=== PATIENT | male | born 1980 | race Two or more races ===

== ENCOUNTER 2024-10-06 12:52 | Emergency (ER) | payer OTHER, SELFPAY ==
[2024-10-06 12:54] VITALS: BP 178/113; PULSE 94; RESP 21; TEMP 36.4; O2SAT 96
[2024-10-06 12:55] VITALS: PULSE 84
--- NOTE | 2024-10-06 12:55 | EKG_ITS ---
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
--- NOTE | 2024-10-06 12:55 | XR_ITS ---
Examination: AP chest single view TECHNIQUE: AP portable upright chest single view Exam date and time: October 06, 2024 1335 hours INDICATIONS: Chest pain today FINDINGS: Normal heart size Reduced inspiratory effort No pneumonia or pulmonary edema Intact osseous structures IMPRESSION: No pneumonia or pulmonary
[2024-10-06 12:56] VITALS: BMI 32.8
--- NOTE | 2024-10-06 13:07 | EDNOTE_ITS ---
ED Chest Pain RME/HPI General Chief Complaint: Chest Pain Stated Complaint: CHEST PAIN Time Seen by Provider: 10/06/24 12:55 Arrival date/time: 10/06/24 12:52 Limitations: no limitations RME / HPI RME / HPI narrative: 44 year old male with history of hypertension presents to the ED BIBA accompanied by [facility] for evaluation of chest pain today. Pain is pleuritic and reproducible, rating as moderate. Accompanied by neck pain. Per medics report, patient was given Aspirin, SL Nitro, and had o2 applied en route. Patient denies fevers, chills, sweats, abdominal pain, n/v/d, or urinary symptoms. No other complaints reported. Related Data Previous Rx's ?Medication ?Instructions ?Recorded amlodipine 10 mg tablet 10 mg PO QDAY 30 days #30 tabs 03/17/24 atorvastatin 40 mg tablet 40 mg PO HS 30 days #30 tabs 03/17/24 lisinopril 20 mg tablet 20 mg PO QDAY 30 days #30 tabs 03/17/24 nicotine 21 mg/24 hr daily 14 mg topical QDAY 30 days #30 ea 03/17/24 transdermal patch Allergies Allergy/AdvReac Type Severity Reaction Status Date / Time No Known Allergies Allergy Verified 05/31/23 03:15 Review of Systems Review of Systems Systems Reviewed: All systems reviewed, normal except as documented Past Medical History Past Medical History CARDIAC: Positive Cardiac Disorders and Hypertension MUSCULOSKELETAL: Positive Fractures (right leg) PSYCHO/SOCIAL: Positive Recreational Drug Use, Depression and Anxiety Family History FAMILY HISTORY: Positive Family Cardiac Disorders Social History SMOKING STATUS: Current every day smoker ED Exam General Limitations: Present no limitations General appearance: Present alert and other (Mild distress) Head Head exam: Present atraumatic, normocephalic and normal inspection Eye Eye exam: Present normal appearance, PERRL and EOMI ENT ENT exam: Present normal exam, normal oropharynx and mucous membranes moist Neck Neck exam: Present normal inspection, full ROM and trachea midline Chest Chest inspection: Present symmetric chest wall rise and other (Reproducible tenderness ) Respiratory Respiratory exam: Present normal lung sounds bilaterally Cardiovascular Cardiovascular exam: Present regular rate, normal rhythm and normal heart sounds Abdominal Exam Abdominal exam: Present soft and normal bowel sounds Extremities Exam Extremities exam: Present normal inspection and full ROM Back Exam Back exam: Present normal inspection and full ROM Neurological Exam Neurological exam: Present alert, oriented X3 and CN II-XII intact Psychiatric Psychiatric exam: Present normal affect and normal mood Skin Skin exam: Present warm, dry, intact and normal color Course Course Course Narrative: chest xray ordered to help determine etiology of chest pain. Quality Measures none Orders Category Date Time Status Paper Steamer STAT Care 10/06/24 12:55 Active Continuous Pulse Oximetry ONCE Care 10/06/24 12:55 Active EKG (ED ONLY) *Do not use* NOW Care 10/06/24 12:55 Completed EKG (ED Only) Stat Exams 10/06/24 12:55 Draft XR chest 1V portable Stat Exams 10/06/24 12:55 Completed B-Type Natriuretic Peptide Stat Lab 10/06/24 13:15 Completed CBC Stat Lab 10/06/24 13:15 Completed Comprehensive Metabolic Panel Stat Lab 10/06/24 13:15 Completed Troponin I Stat Lab 10/06/24 13:15 Completed Ibuprofen Tab [Motrin Tab] Med 10/06/24 12:56 Discontinued 800 mg PO X1 ONE cloNIDine HCL [Catapres] Med 10/06/24 12:57 Discontinued 0.1 mg PO X1 ONE cloNIDine HCL [Catapres] Med 10/06/24 14:41 Discontinued 0.1 mg PO X1 ONE Reevaluation(s) Reevaluation #1: Patient remains clinically stable throughout the emergency department visit. We reviewed all the results, analysis, and treatment plans. Patient is amenable to discharge. Strict return precautions were outlined. Patient was discharged in stable condition. Time: 15:00 Vital Signs Vital signs: Vital Signs Temperature 97.5 F 10/06/24 12:54 Pulse Rate 94 10/06/24 12:54 Respiratory Rate 21 H 10/06/24 12:54 Blood Pressure 178/113 H 10/06/24 12:54 Pulse Oximetry (%) 96 10/06/24 12:54 Oxygen Delivery Method Room Air 10/06/24 12:54 Pulse ox is 96% on room air which is adequate. Chest Pain MDM Narrative MDM Narrative:: Miriam Felix am scribing for and in the presence of Dr. Persaud. Patient data External records reviewed:: [facility] previous records (I reviewed admission from 03/16/2024 through 03/17/2024) Clinical information provided by:: patient and law enforcement Social determinants that could affect healthcare access:: other (specify) (Currently incarcerated ) Patient has the following chronic illnesses:: HTN How is presenting disease/condition affected by chronic disease/condition?: exacerbated by Evaluation data The following diagnostics were reviewed and interpreted by me:: lab results, radiology exam(s) and EKG tracing(s) (Sinus rhythm, rate 80, nonspecific ST T- wave changes) Lab and/or radiology exams considered but not ordered:: None Interpretation Summary: Ordering Physician: Cristino Persaud MD Date of Service: 10/06/24 Procedure(s): XR chest 1V portable Accession Number(s): [id number] cc: Cristino Persaud MD; Bebeto Lazar MD; NO PRIMARY/FAMILY,PHYSICIAN~ Examination: AP chest single view TECHNIQUE: AP portable upright chest single view Exam date and time: October 06, 2024 1335 hours INDICATIONS: Chest pain today FINDINGS: Normal heart size Reduced inspiratory effort No pneumonia or pulmonary edema Intact osseous structures IMPRESSION: No pneumonia or pulmonary Dictated By: Bebeto Lazar MD Signed By: <Electronically signed by Bebeto Lazar MD in OV> 10/06/24 1348 Medications / Prescriptions Medications or Prescriptions considered but not ordered:: None Medication administrations:: Medication Administration History Discontinued Medications Clonidine (Clonidine Hcl 0.1 Mg Tablet) 0.1 mg PO X1 ONE Stop: 10/06/24 12:58 Last Admin: 10/06/24 14:46 Dose: Not Given Documented By: Non-Admin Reason: Other, see note Comments: patient spit out accidently Clonidine (Clonidine Hcl 0.1 Mg Tablet) 0.1 mg PO X1 ONE Stop: 10/06/24 14:42 Last Admin: 10/06/24 14:46 Dose: 0.1 mg Documented By: Ibuprofen (Ibuprofen Tab 400 Mg Tablet) 800 mg PO X1 ONE Stop: 10/06/24 12:57 Last Admin: 10/06/24 13:22 Dose: 800 mg Documented By: See above Consultations Consultation(s) initiated? (list below): No Diagnosis Chest Pain Differential Diagnosis: stable angina, atypical chest pain, st elevation myocardial infarction, costochondritis and chest pain Most likely diagnosis given after review of the tests above:: Hypertensive urgency Chest pain Admission Indicated Admission indicated?: not indicated Admission Request Was there a request for admission?: No Disposition Plan Disposition Plan: Discharge Discharge Attestation Discharge Attestation: The patient and all family members were given an opportunity to ask questions and understood the discharge instructions. Discharge instructions specifically effects, indications for sooner follow up or return to the emergency department, and the expected course of current diagnosis. Patient condition: Stable Discharge Plan Plan Patient Disposition: Intermediate/Court/Law Patient condition on transfer: Stable Prescriptions/Referrals Prescriptions/Med Rec: No Action amlodipine 10 mg tablet 10 mg PO QDAY 30 Days Qty: 30 6RF atorvastatin 40 mg tablet 40 mg PO HS 30 Days Qty: 30 6RF lisinopril 20 mg Tablet 20 mg PO QDAY 30 Days Qty: 30 6RF nicotine 21 mg/24 hr patch 24 hour 14 mg topical QDAY 30 Days Qty: 30 6RF Referrals: No Primary/Family,Physician [Primary Care Provider] - In 1 week Problem List Clinical Impression: Hypertensive urgency, Chest pain Patient/Caregiver Discharge Instructions Print Language: Yoruba
[2024-10-06 13:14] VITALS: PULSE 88; BMI 31.1
[2024-10-06] MEDS: IBUPROFEN TAB 400 MG TABLET 800 MG PO (13:22)
[2024-10-06 13:33] LABS: Basophils # (Auto) 0.1 Thou/mm3 (0.0-0.2); Basophils % (Auto) 1 % (0-2.5); Eosinophils # (Auto) 0.2 Thou/mm3 (0.0-0.5); Eosinophils % (Auto) 2 % (0-10); Hematocrit 51.4 % (41.0-53.0); Hemoglobin 18.6 g/dL (13.5-16.0); Immature Granulocytes % (Auto) 0 % (0-0); Immature Granulocytes Auto 0.04 Thou/mm3 (0.00-0.00); Lymphocytes # (Auto) 1.6 Thou/mm3 (1.0-4.8); Lymphocytes % (Auto) 16 % (10-50); Mean Corpuscular HGB Conc 36.2 g/dl (31.0-37.0); Mean Corpuscular Hemoglobin 29.5 pg (25.0-35.0); Mean Corpuscular Volume 82 fL (80-100); Monocytes # (Auto) 0.6 Thou/mm3 (0.0-0.8); Monocytes % (Auto) 6 % (0-12); Neutrophils # (Auto) 7.4 Thou/mm3 (1.8-7.7); Neutrophils % (Auto) 75 % (37-80); Nucleated Red Blood Cell % 0 /100 WBC (0); Platelet Count 290 Thou/mm3 (140-440); RDW Standard Deviation 37.3 fL (35.1-43.9); White Blood Count 9.8 Thou/mm3 (3.8-10.6)
[2024-10-06 13:49] LABS: B-Type Natriuretic Peptide < 20 pg/mL (0-100)
[2024-10-06 14:01] VITALS: BP 194/124; PULSE 82; RESP 20; TEMP 36.6; O2SAT 95
[2024-10-06 14:30] LABS: Alanine Aminotransferase 11 U/L (10-49); Albumin, Serum 4.6 gm/dL (3.5-5.0); Albumin/Globulin Ratio 1.4 (1.2-2.2); Alkaline Phosphatase 105 U/L (46-116); Anion Gap 7 (7-16); Aspartate Amino Transferase 18 U/L (0-34); BUN/Creatinine Ratio 10 Ratio (12-20); Blood Urea Nitrogen 9 mg/dL (9-23); Calcium 10.6 mg/dL (8.3-10.6); Calcium (Corrected) 10.6 mg/dL (8.5-10.1); Carbon Dioxide 23.5 mMol/L (20.0-31.0); Chloride 105 mMol/L (98-107); Creatinine (Component) 0.9 mg/dL (0.6-1.3); Estimated Creatinine Clearance 109.9 mL/min (>60); Globulin 3.2 gm/dL (2.3-3.5); Glucose 152 mg/dL (74-106); Osmolality,Calculated 271 (275-295); Potassium 3.8 mMol/L (3.4-5.1); Sodium 135 mMol/L (136-145); Total Protein 7.8 gm/dL (5.7-8.2); Troponin I < 0.020 ng/mL (0.0-0.045); eGFR > 60 See Note
[2024-10-06 14:46] VITALS: BP 167/98; PULSE 82; PULSE 85
[2024-10-06] MEDS: cloNIDine HCL 0.1 MG TABLET PO (14:46)
[2024-10-06 15:27] VITALS: BP 149/105; PULSE 87; RESP 16; TEMP 36.8; O2SAT 100
== END 2024-10-06 15:40 ==
PROVIDERS: Emergency Provider Emergency Medicine
DX: I16.0 Hypertensive urgency (principal); I10 Essential (primary) hypertension; F17.200 Nicotine dependence, unspecified, uncomplicated
CPT/HCPCS: 36415; 71045; 80053; 83880; 84484; 85025; 93005; 99283; A9270

== ENCOUNTER 2025-01-12 18:37 | Emergency (ER) | payer MEDICAID, SELFPAY ==
[2025-01-12] VITALS (7 sets, daily range): BP systolic 155–226; BP diastolic 98–146; PULSE 64–72; RESP 17–18; TEMP 36.7; O2SAT 98–100; BMI 30.2
[2025-01-12] MEDS: Lisinopril 20 MG TABLET PO (19:40)
[2025-01-12] MEDS: amLODIPine BESYLATE 5 MG TABLET 10 MG PO (19:40)
--- NOTE | 2025-01-12 20:11 | PD.EDMEDCL ---
ED Medical Clearance RME/HPI General Chief complaint: Medical Clearance Stated complaint: MEDICAL CLEARENCE Time Seen by Provider: 01/12/25 18:50 Source: police Arrival date/time: 01/12/25 18:37 This is a 44-year-old male who presents to the emergency department as a medical senior care clearance company with [facility]. He was detained and needed clearance to be booked at the [facility] senior care. He was noted to be hypertensive. Patient has no symptoms. History of hypertension has not been taking his medication for the last 3 months. Denies chest pain, dyspnea no headache, no dizziness. Mode of arrival: ambulatory Related Information Previous Rx's ?Medication ?Instructions ?Recorded amlodipine 10 mg tablet 10 mg PO QDAY 30 days #30 tabs 03/17/24 atorvastatin 40 mg tablet 40 mg PO HS 30 days #30 tabs 03/17/24 lisinopril 20 mg tablet 20 mg PO QDAY 30 days #30 tabs 03/17/24 nicotine 21 mg/24 hr daily 14 mg topical QDAY 30 days #30 ea 03/17/24 transdermal patch Allergies Allergy/AdvReac Type Severity Reaction Status Date / Time No Known Allergies Allergy Verified 05/31/23 03:15 Review of Systems Review of Systems Systems Reviewed: All systems reviewed, normal except as documented Narrative Review of Systems: Gen: No fever, no chills, no weight loss EYES: No discharge, no visual changes, no pain HEENT: No ear pain, no congestion, no sore throat PULM: No shortness of breath, no cough, no congestion CV: No chest pain, no dyspnea on exertion, no palpitations GI: No nausea, no vomiting, no diarrhea, no pain, no constipation : No frequency, no urgency, no dysuria Musc/skel: No joint pain, no back pain Skin: No rash Psyc: No hallucinations, no depression Heme/Lymph: No easy bleeding or bruising tendencies Neuro: No weakness, no headache ED Exam Narrative Physical exam: General: Sittiing in Exam table in no acute distress, answering questions appropriately HENT: normocephalic, atraumatic, EOMI, PERRLA, moist mucous membranes Chest: chest wall is nontender Cardiac: regular rate and rhythm, normal S1 and S2, no murmurs, rubs, or gallops, capillary refill ?2 seconds Pulmonary: clear to auscultation bilaterally, no wheezing, crackles, or rhonchi Abdominal: active bowel sounds, soft, nontender, nondistended Neuro: A&OX3, CN II-XII intact, sensation grossly intact bilaterally in UE and LE. Skin: no rashes, no ecchymosis Ext: no lower extremity edema Course Quality Measures none Orders Category Date Time Status EKG (ED ONLY) *Do not use* NOW Care 01/12/25 21:20 Completed EKG (ED Only) Stat Exams 01/12/25 21:20 Draft DiphenhydrAMINE [Benadryl] Med 01/12/25 21:52 Discontinued 50 mg PO X1 ONE Lisinopril [Prinivil] Med 01/12/25 18:53 Discontinued 20 mg PO X1 ONE amLODIPine BESYLATE [Norvasc] Med 01/12/25 18:53 Discontinued 10 mg PO X1 ONE cloNIDine HCL [Catapres] Med 01/12/25 20:47 Discontinued 0.1 mg PO X1 ONE cloNIDine HCL [Catapres] Med 01/12/25 21:48 Discontinued 0.2 mg PO X1 ONE Vital Signs Vital signs: Vital Signs Temperature 98.1 F 01/12/25 19:37 Pulse Rate 72 01/12/25 19:37 Respiratory Rate 18 01/12/25 19:37 Blood Pressure 226/146 H 01/12/25 19:37 Pulse Oximetry (%) 100 01/12/25 19:37 Oxygen Delivery Method Room Air 01/12/25 19:37 Medical Clearance MDM Narrative MDM Narrative:: 44-year-old male history of uncontrolled hypertension nonmedical compliance here for medical senior care clearance. Patient was given his routine medication which she has not taken for over weeks. He was also given a clonidine. Bringing down his blood pressure to 150 over 90s. An EKG was done sinus rhythm no ST elevation no STEMI Patient will be released back to the senior care system medically General Clearance. Patient data External records reviewed:: [facility] previous records Clinical information provided by:: none Social determinants that could affect healthcare access:: none Patient has the following chronic illnesses:: Hypertension How is presenting disease/condition affected by chronic disease/condition?: exacerbated by Evaluation data The following diagnostics were reviewed and interpreted by me:: EKG tracing(s) Lab and/or radiology exams considered but not ordered:: No Interpretation Summary: EKG medically necessary in the evaluation of noncompliant hypertension and interpreted by me and ED physician at the time of patient evaluation. Normal sinus rhythm with a rate of 50. [place] and QT intervals within normal limits. No ST/T changes. No STEMI. Interpretation: Normal EKG Medications / Prescriptions Medications or Prescriptions considered but not ordered:: No Medication administrations:: Medication Administration History Discontinued Medications Amlodipine Besylate (Amlodipine Besylate 5 Mg Tablet) 10 mg PO X1 ONE Stop: 01/12/25 18:54 Last Admin: 01/12/25 19:40 Dose: 10 mg Documented By: TC Clonidine (Clonidine Hcl 0.1 Mg Tablet) 0.1 mg PO X1 ONE Stop: 01/12/25 20:48 Last Admin: 01/12/25 20:49 Dose: 0.1 mg Documented By: TREY Clonidine (Clonidine Hcl 0.1 Mg Tablet) 0.2 mg PO X1 ONE Stop: 01/12/25 21:49 Last Admin: 01/12/25 22:15 Dose: Not Given Documented By: ELKE Non-Admin Reason: Discontinued Diphenhydramine HCl (Diphenhydramine 25 Mg Capsule) 50 mg PO X1 ONE Stop: 01/12/25 21:53 Last Admin: 01/12/25 22:16 Dose: Not Given Documented By: AC Non-Admin Reason: Discontinued Lisinopril (Lisinopril 20 Mg Tablet) 20 mg PO X1 ONE Stop: 01/12/25 18:54 Last Admin: 01/12/25 19:40 Dose: 20 mg Documented By: TC All medications administered and effective Consultations Consultation(s) initiated? (list below): No Diagnosis Medical Clearance Differential Diagnosis: other (Hypertension, hypertensive urgency, medical senior care clearance. Drug abuse.) Most likely diagnosis given after review of the tests above:: Hypertension uncontrolled Admission Indicated Admission indicated?: not indicated Admission Request Was there a request for admission?: No Disposition Plan Disposition Plan: Discharge Discharge Attestation Discharge Attestation: The patient and all family members were given an opportunity to ask questions and understood the discharge instructions. Discharge instructions specifically effects, indications for sooner follow up or return to the emergency department, and the expected course of current diagnosis. Patient condition: Stable Discharge Plan Plan Patient Disposition: Long-Term/Court/Law Patient condition on transfer: Stable Prescriptions/Referrals Prescriptions/Med Rec: No Action amlodipine 10 mg tablet 10 mg PO QDAY 30 Days Qty: 30 6RF atorvastatin 40 mg tablet 40 mg PO HS 30 Days Qty: 30 6RF lisinopril 20 mg Tablet 20 mg PO QDAY 30 Days Qty: 30 6RF nicotine 21 mg/24 hr patch 24 hour 14 mg topical QDAY 30 Days Qty: 30 6RF Referrals: No Primary/Family,Physician [Primary Care Provider] - In 1 week Problem List Clinical Impression: Medical clearance for incarceration, History of uncontrolled hypertension, Non compliance w medication regimen Patient/Caregiver Discharge Instructions Education Materials: Hypertension Dc Additional Instructions: With your history of hypertension it is very important that you take your medication as directed. Amlodipine 10 mg/day Lisinopril 40 mg p.o. per day Follow-up with your primary doctor. If you use drugs please stop using drugs it can harm your heart. Return to the emergency department this any worsening symptoms change in condition. Print Language: Citizen Of [place] PA/LALY Supervising Physician PA/LALY Supervising Physician: Dr. Swartz
[2025-01-12] MEDS: cloNIDine HCL 0.1 MG TABLET PO (20:49)
--- NOTE | 2025-01-12 21:20 | EKG_ITS ---
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
== END 2025-01-12 22:17 ==
PROVIDERS: Emergency Provider Emergency Medicine
DX: Z02.89 Encounter for other administrative examinations (principal); I10 Essential (primary) hypertension; Z65.3 Problems related to other legal circumstances; T46.5X6A Underdosing of other antihypertensive drugs, initial encounter; Z91.148 Patient's other noncompliance with medication regimen for other reason; Z79.899 Other long term (current) drug therapy
CPT/HCPCS: 93005; 99283; A9270

== ENCOUNTER 2025-02-19 17:22 | Inpatient (IN) | payer MEDICAID, SELFPAY ==
[2025-02-19] VITALS (7 sets, daily range): BP systolic 156–175; BP diastolic 97–112; PULSE 59–75; RESP 17–96; TEMP 36.8–37.2; O2SAT 96; BMI 30.5
--- NOTE | 2025-02-19 17:28 | XR_ITS ---
Examination: CTA carotids with intravenous contrast CTA brain, head with intravenous contrast. 2-D sagittal, coronal reconstructions. 3-D reconstructions. Exam date and time: February 19, 2025 at 05 hours Indications: Stroke alert, onset focal neurologic deficit left-sided body weakness today CTDI: vol (mGy) 25 DLP: (mGycm) 463 Technique: Multiple CTA axial brain, head carotid images post intravenous contrast injection 75 cc, [id number]. 2-D sagittal, coronal reconstructions. 3-D reconstructions, 3-D post processing including vascular maximum intensity projection images. Low dose protocols were performed. One or more of the following dose reduction techniques were used; automated exposure control, adjustment of the mA and/or KV according to patient size, use of iterative reconstruction technique. Findings: No significant common carotid carotid bifurcation or internal carotid artery stenoses Codominant vertebral arteries with no critical stenoses No cerebral large vessel arterial occlusions thrombus dissection or cerebral aneurysm Impression: No significant neck arterial stenoses No cerebral large vessel arterial occlusions or thrombus Consider repeating the brain MRI MRA without contrast, stroke protocol, follow-up
--- NOTE | 2025-02-19 17:28 | XR_ITS ---
Examination: CT brain head without contrast. 2-D sagittal coronal reconstructions Date and time of exam:February 1804 hrs. Indications: Stroke alert onset headaches with left-sided body weakness today CTDI: vol (mGy):50.5 DLP: (mGycm):1157 Technique: Multiple CT axial sections of the brain have been obtained, 5 mm slice thickness. Contrast has not been administered. 2-D sagittal, coronal reconstructions have been obtained Low dose protocols were performed. One or more of the following dose reduction techniques were used; automated exposure control, adjustment of the mA and/or KV according to patient size, use of iterative reconstruction technique. Findings: No significant ventricular enlargement. Intra-axial or extra-axial hemorrhage density is not seen. No mass effect or midline shift Basal cisterns are not remarkable. Fourth ventricle is midline. Cranial vault intact. Impression: Negative for acute hemorrhage, mass effect or midline shift As clinically warranted, brain MRI follow-up would best assess for demyelinating disease, acute ischemic change
--- NOTE | 2025-02-19 17:28 | EKG_ITS ---
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
--- NOTE | 2025-02-19 17:28 | EDRME_ITS ---
Rapid Medical Screening Exam [facility] Arrival date/time: 02/19/25 17:22 Chief Complaint: Altered Mental Status Vital signs: Vital Signs Temperature 99.0 F 02/19/25 17:25 Pulse Rate 68 02/19/25 17: Respiratory Rate 20 02/19/25 17:25 Blood Pressure 171/104 H 02/19/25 17:25 Pulse Oximetry (%) 96 02/19/25 17:25 Oxygen Delivery Method Room Air 02/19/25 17:25 RME Narrative: 44 year old male with past medical history significant for hypertension presents to the Emergency Department brought in from nursing home with complaint of left sided droop and left sided facial numbness since this morning; patient did not give us an onset of symptoms but it was when he woke up to brush his teeth, he states last night he was normal. Patient states that he started with a headache for 3 days. 1727: Stroke alert initiated. Orders made at this time are congruent stroke protocol.
[2025-02-19 17:47] LABS: Basophils # (Auto) 0.1 Thou/mm3 (0.0-0.2); Basophils % (Auto) 1 % (0-2.5); Eosinophils # (Auto) 0.3 Thou/mm3 (0.0-0.5); Eosinophils % (Auto) 4 % (0-10); Hematocrit 49.1 % (41.0-53.0); Hemoglobin 17.5 g/dL (13.5-16.0); Immature Granulocytes % (Auto) 0 % (0-0); Immature Granulocytes Auto 0.01 Thou/mm3 (0.00-0.00); Lymphocytes % (Auto) 29 % (10-50); Mean Corpuscular HGB Conc 35.6 g/dl (31.0-37.0); Mean Corpuscular Volume 81 fL (80-100); Monocytes # (Auto) 0.6 Thou/mm3 (0.0-0.8); Monocytes % (Auto) 8 % (0-12); Neutrophils # (Auto) 3.9 Thou/mm3 (1.8-7.7); Neutrophils % (Auto) 58 % (37-80); Nucleated Red Blood Cell % 0 /100 WBC (0); Platelet Count 216 Thou/mm3 (140-440); RDW Standard Deviation 35.7 fL (35.1-43.9); Red Blood Count 6.04 Miln/mm3 (4.50-5.90); White Blood Count 6.8 Thou/mm3 (3.8-10.6)
[2025-02-19 18:06] LABS: Prothrombin Time 10.9 Seconds (9.0-12.2)
[2025-02-19 18:13] LABS: Alanine Aminotransferase 28 U/L (10-49); Albumin, Serum 4.4 gm/dL (3.5-5.0); Albumin/Globulin Ratio 1.4 (1.2-2.2); Alkaline Phosphatase 87 U/L (46-116); Anion Gap 9 (7-16); Aspartate Amino Transferase 29 U/L (0-34); BUN/Creatinine Ratio 11 Ratio (12-20); Bilirubin,Total 0.7 mg/dL (0.3-1.2); Blood Urea Nitrogen 9 mg/dL (9-23); Carbon Dioxide 24.4 mMol/L (20.0-31.0); Chloride 104 mMol/L (98-107); Creatinine (Component) 0.8 mg/dL (0.6-1.3); Estimated Creatinine Clearance 122.5 mL/min (>60); Globulin 3.1 gm/dL (2.3-3.5); Glucose 97 mg/dL (74-106); Magnesium 2.2 mg/dL (1.6-2.6); Osmolality,Calculated 272 (275-295); Potassium 4.4 mMol/L (3.4-5.1); Sodium 137 mMol/L (136-145); Total Protein 7.5 gm/dL (5.7-8.2); Troponin I < 0.002 ng/mL (0.0-0.045); eGFR > 60 See Note
--- NOTE | 2025-02-19 18:19 | PD.EDNEURO ---
Neuro Symptoms Deficit-RME/HPI General Chief Complaint: Altered Mental Status Stated Complaint: MEDICAL CLEARANCE Time Seen by Provider: 02/19/25 18:18 Arrival date/time: 02/19/25 17:22 RME / HPI RME / HPI Narrative: 44 year old male with past medical history significant for hypertension presents to the Emergency Department brought in from detention with complaint of left sided droop and left sided facial numbness since this morning; patient did not give us an onset of symptoms but it was when he woke up to brush his teeth, he states last night he was normal. Patient states that he started with a headache for 3 days. 1727: Stroke alert initiated. Orders made at this time are congruent stroke protocol. This section includes all my notes and documentations, including HPI, PE, and ED course. Juan Miguel Alcantar MD HPI: 44-year-old male here with several days of severe headache and left-sided numbness and weakness since this morning. No speech or visual impairment. No chest pain or shortness of breath. No other complaints. ROS: All negative except as documented in HPI. Physical Exam: General: Alert and oriented. No acute distress. Eyes: Conjunctivae and lids clear. EOMI. PERRL. ENT: No nasal congestion. Neck: Supple. No carotid bruit. No JVD. Heart: RRR. Lungs: No respiratory distress. Good air movement. No rhonchi, wheezing, rales. Skin: Warm and dry. Neuro: Alert and oriented X 3. Cranial Nerves II-XII grossly intact. No peripheral motor deficits. I reviewed all diagnostic test results. My interpretation of the EKG is sinus rhythm with no acute ST?T changes. My review of the head CT report is no acute findings. My review of the head/neck CT report is no acute findings. Blood tests and urine tests unremarkable. At this point, diagnoses include strokelike symptoms. Treatment here included ASA. Remained stable. I discussed the case with telehealth neurologist and our hospitalist. About the presentation and exam and diagnostics and treatments here. And need of further care in the hospital. Will accept the patient. Juan Miguel Alcantar MD Related Data Previous Rx's ?Medication ?Instructions ?Recorded amlodipine 10 mg tablet 10 mg PO QDAY 30 days #30 tabs 03/17/24 atorvastatin 40 mg tablet 40 mg PO HS 30 days #30 tabs 03/17/24 lisinopril 20 mg tablet 20 mg PO QDAY 30 days #30 tabs 03/17/24 nicotine 21 mg/24 hr daily 14 mg topical QDAY 30 days #30 ea 03/17/24 transdermal patch Allergies Allergy/AdvReac Type Severity Reaction Status Date / Time No Known Allergies Allergy Verified 05/31/23 03:15 Course Quality Measures none Orders Category Date Time Status Bedside Blood Glucose NOW Care 02/19/25 17:28 Active COVID-19 Screening Questionnaire NOW Care 02/19/25 19:02 Active 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 NOW Care 02/19/25 17:28 Active Continuous Pulse Oximetry NOW Care 02/19/25 17:28 Completed Decision to Admit X1 Care 02/19/25 19:02 Active EKG (ED ONLY) *Do not use* NOW Care 02/19/25 17:28 Completed In and Out Catheter NEEDED Care 02/19/25 17:28 Active Insert IV NOW Care 02/19/25 17:28 Active NIH Stroke Scale now Care 02/19/25 17:28 Active NPO NOW Care 02/19/25 17:28 Active Nurse Swallow Screen x1 Care 02/19/25 17:28 Active Consult to Neurology / Tele-Neurology Routine Cons 02/19/25 17:[address] angio stroke protocol Stat Exams 02/19/25 17:[address] stroke protocol Stat Exams 02/19/25 17:28 Completed EKG (ED Only) Stat Exams 02/19/25 17:28 Draft CBC Stat Lab 02/19/25 17:33 Completed Comprehensive Metabolic Panel Stat Lab 02/19/25 17:33 Completed Drug Screen,Urine Stat Lab 02/19/25 18:45 Received Magnesium Stat Lab 02/19/25 17:33 Completed Partial Thromboplastin Time Stat Lab 02/19/25 17:33 Completed Prothrombin Time with INR Stat Lab 02/19/25 17:33 Completed Troponin I Stat Lab 02/19/25 17:33 Completed Urinalysis Stat Lab 02/19/25 18:45 Completed Urine Culture Stat Lab 02/19/25 18:45 Received Aspirin Med 02/19/25 18:25 Discontinued 325 mg PO X1 ONE Ondansetron Inj [Zofran Inj] Med 02/19/25 17:28 Active 4 mg IV Q4HR PRN Oxygen Delivery NOW RT 02/19/25 17:28 Active Vital Signs Vital signs: Vital Signs Temperature 99.0 F 02/19/25 17:25 Pulse Rate 68 02/19/25 17:25 Respiratory Rate 20 02/19/25 17:25 Blood Pressure 171/104 H 02/19/25 17:25 Pulse Oximetry (%) 96 02/19/25 17:25 Oxygen Delivery Method Room Air 02/19/25 17:25 Neuro Symptoms / Deficit Patient data External records reviewed:: [facility] previous records Clinical information provided by:: patient and EMS Social determinants that could affect healthcare access:: housing Patient has the following chronic illnesses:: Hypertension How is presenting disease/condition affected by chronic disease/condition?: exacerbated by Evaluation data The following diagnostics were reviewed and interpreted by me:: lab results, radiology exam(s) and EKG tracing(s) Lab and/or radiology exams considered but not ordered:: None Interpretation Summary: Normal diagnostics Medications / Prescriptions Medications or Prescriptions considered but not ordered:: None Medication administrations:: Medication Administration History Ondansetron HCl (Ondansetron Inj 2 Mg/Ml Inj 2 Ml) 4 mg IV Q4HR PRN PRN Reason: NAUSEA OR VOMITING Stop: 03/21/25 17:27 Discontinued Medications Aspirin (Aspirin 325 Mg Tablet) 325 mg PO X1 ONE Stop: 02/19/25 18:26 Last Admin: 02/19/25 18:35 Dose: 325 mg Documented By: APRIL Aspirin Consultations Consultation(s) initiated? (list below): Yes Consultation #1 (Physician, Specialty, Details): I discussed the case with telehealth neurologist. About the presentation and exam and diagnostics and treatments here. And need of further care in the hospital. Recommended admission for further care. Diagnosis Neuro Differential Diagnosis: convulsions, delirium, subarachnoid hemorrhage, peripheral neuropathy, cerebrovascular accident, multiple sclerosis and transient cerebral ischemia Most likely diagnosis given after review of the tests above:: Strokelike symptoms Admission Indicated Admission indicated?: indicated Explain why admission is indicated or not indicated:: Strokelike symptoms Admission Request Was there a request for admission?: Yes Admission Attestation Admission request attestation: Discussed case with Hospitalist service regarding admission. Discussed patients ED course, exam findings, labs, and radiology results. The Hospitalist [agrees] to accept the patient for admission. Disposition Plan Disposition Plan: Admit Discharge Plan Plan Patient Disposition: Admit Acute Care w/in Hospital Prescriptions/Referrals Prescriptions/Med Rec: No Action amlodipine 10 mg tablet 10 mg PO QDAY 30 Days Qty: 30 6RF atorvastatin 40 mg tablet 40 mg PO HS 30 Days Qty: 30 6RF lisinopril 20 mg Tablet 20 mg PO QDAY 30 Days Qty: 30 6RF nicotine 21 mg/24 hr patch 24 hour 14 mg topical QDAY 30 Days Qty: 30 6RF Referrals: No Primary/Family,Physician [Primary Care Provider] - In 1 week Problem List Clinical Impression: Stroke-like symptoms Patient/Caregiver Discharge Instructions Print Language: Kyrgyz Stand Alone Forms: Vicki Award Info., Patient Portal Info Letter
--- NOTE | 2025-02-19 18:27 | ESCONSULT_ITS ---
Tele Neuro Consultation Consultation Date 02/19/25 Most Recent Vital Signs Last Vital Signs Temp 99.0 F 02/19/25 17:25 Pulse 72 02/19/25 17:39 Resp 26 H 02/19/25 17:39 BP 175/112 H 02/19/25 17:39 Pulse Ox 96 02/19/25 17:39 O2 Del Method Room Air 02/19/25 17:25 FiO2 97 02/19/25 17:28 Laboratory-Coagulation Panel PT 10.9 Seconds (9.0-12.2) 02/19/25 17:33 INR 1.0 (0.9-1.3) 02/19/25 17:33 APTT 23.0 Seconds (22.0-36.0) 02/19/25 17:33 Consultation Narrative [facility] Patient Name:???Yao Ramirez Date of :???1980 Identification Number:??? Date of Service:???02/19/2025 17:33:23 Diagnosis:?I63.89 - Cerebrovascular accident (CVA) due to other mechanism ([facility]) Impression: ?44 year old man with HTN for whom neurology is consulted for evaluation of stroke. LKW 3 days ago with progressive onset of severe headache followed by wake up symptoms this morning of left facial weakness and left arm/leg weakness and numbness. NIHSS = 7 currently. NCCT Head without acute ischemia or hemorrhage. CTA Head and Neck without any LVO or flow limiting disease. Overall, given presence of left hemibody symptoms, his deficits best localize to DATABASE ADMIN process most likely pontine. His facial symptoms best localized to the geniculate ganglion of of left CN VII given tongue numbness and hyperacusis on left. 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 ? ?Recommendations: ?-q4 vitals/neurochecks ?-BP goal normotension, avoid drop in BP >15% in 24 hours ?-BG goal <180mg/dL while admitted ?-Aspirin 325mg x1 in ED ?-Continue Aspirin 81mg qdaily for now ?-Would hold on steroids until MRI results ?-Atorvastatin 80mg qHS ?-Check LDL and A1c (goal LDL <70, goal A1c <7) ?-Obtain MRI Brain w/o contrast, TTE w/ bubble, and place on telemetry monitoring ?-PT/OT/ST consults, NPO until passes bedside swallow study ?-Neurology follow up recommended ? Advanced Imaging: CTA Head and Neck Completed. LVO:No Patient in not a candidate for CHRIS Metrics: Last Known Well: Unknown Dispatch Time: 02/19/2025 17:33:23 Arrival Time: 02/19/2025 17:22:00 Initial Response Time: 02/19/2025 17:44:00Symptoms: Left Sided Weakness, Headache. Initial patient interaction: 02/19/2025 17:49:13 NIHSS Assessment Completed: 02/19/2025 17:55:14Patient is not a candidate for Thrombolytic. Thrombolytic Medical Decision: 02/19/2025 17:55:15Patient was not deemed candidate for Thrombolytic because of following reasons: LKW outside 4.5 hr window. . I personally Reviewed the CT Head and it Showed no hemorrhage or obvious acute ischemia Primary Provider Notified of Diagnostic Impression and Management Plan on: 02/19/2025 18:26:28 History of Present Illness:Patient is a 44 year old Male. Patient was brought by EMS for symptoms of Left Sided Weakness, Headache. Yao Ramirez is a 44 year old man with HTN who presents to the ED for evaluation of several days of severe and worsening headache and wake up symptoms of left facial weakness as well as left face and arm weakness/numbness. He endorses onset of symptoms about 3 days ago with very bad headache . He talked with nurse at [facility] who noted his blood pressure was normal at the time. His headache continued to worsen and this morning he noted he could not hold any water in his mouth. He also noted left sided tongue numbness and hyperacusis on left. He additionally notes left facial, arm, and leg numbness as well as some difficulty with motor strength in his left arm and leg. He denies history of similar symptoms. He endorses ongoing headache. Past Medical History: ?Hypertension Medications: No Anticoagulant use? No Antiplatelet use Reviewed EMR for current medications Allergies:? Reviewed Social History: Smoking: Yes Alcohol Use: Yes Family History: There is no family history of premature cerebrovascular disease pertinent to this consultation ROS : 14 Points Review of Systems was performed and was negative except mentioned in HPI. Past Surgical History: There Is No Surgical History Contributory To Today?s Visit Examination: BP(175/112),?Pulse(72),?Blood Glucose(102) 1A: Level of Consciousness - Alert; keenly responsive?+ 0 1B: Ask Month and Age - Both Questions Right?+ 0 1C: Blink Eyes & Squeeze Hands - Performs Both Tasks?+ 0 2: Test Horizontal Extraocular Movements - Normal?+ 0 3: Test Visual Javier - No Visual Loss?+ 0 4: Test Facial Palsy (Use Grimace if Obtunded) - Unilateral Complete paralysis (upper/lower face)?+ 3 5A: Test Left Arm Motor Drift - Drift, but doesn't hit bed?+ 1 5B: Test Right Arm Motor Drift - No Drift for 10 Seconds?+ 0 6A: Test Left Leg Motor Drift - Drift, but doesn't hit bed?+ 1 6B: Test Right Leg Motor Drift - No Drift for 5 Seconds?+ 0 7: Test Limb Ataxia (FNF/Heel-Sanchez) - No Ataxia?+ 0 8: Test Sensation - Mild-Moderate Loss: Less Sharp/More Dull?+ 1 9: Test Language/Aphasia - Normal; No aphasia?+ 0 10: Test Dysarthria - Mild-Moderate Dysarthria: Slurring but can be understood?+ 1 11: Test Extinction/Inattention - No abnormality?+ 0 NIHSS Score:?7 Pre-Morbid Modified Royston Scale:0 Points = No symptoms at all Spoke with :?ED Attending MD This consult was conducted in real time using interactive audio and video technology. Patient was informed of the technology being used for this visit and agreed to proceed. Patient located in hospital and provider located at home/office setting. Patient is being evaluated for possible acute neurologic impairment and high probability of imminent or life-threatening deterioration. I spent total of 35 minutes providing care to this patient, including time for face to face visit via telemedicine, review of medical records, imaging studies and discussion of findings with providers, the patient and/or family. Dr Duke Kovacs [facility] For Inpatient follow-up with [facility] physician please call [facility] at . As we are not an outpatient service for any post hospital discharge needs please contact the hospital for assistance. If you have any questions for the [facility] physicians or need to reconsult for clinical or diagnostic changes please contact us via [facility] at .
[2025-02-19] MEDS: Aspirin 325 MG TABLET PO (18:35)
[2025-02-19 18:55] LABS: Collection Type, Urine Clean Catch
[2025-02-19 18:58] LABS: Bilirubin,Urine Negative (Negative); Blood,Urine Negative (Negative); Clarity,Urine Clear (Clear/Hazy); Color,Urine Colorless (Lt Yel-Yel); Glucose, Urine Negative (Negative); Ketones,Urine Negative (Negative); Leukocyte Esterase,Urine Negative (Negative); Nitrite,Urine Negative (Negative); Protein,Urine Negative (Neg - Trace); RBC,Urine 2 /hpf (0-3); Specific Gravity,Urine 1.031 (1.001-1.035); Squamous Epithelial Cell,Urine < 1 /hpf (0-5); Urobilinogen,Urine Negative mg/dL (0.0-1.0); WBC,Urine < 1 /hpf (0-5)
[2025-02-19 20:19] LABS: Amphetamine/Methamp Scrn,U Negative (Negative); Barbiturate Screen,Urine Negative (Negative); Benzodiazepines Screen,Urine Negative (Negative); Benzoylecgonine Screen, Ur Negative (Negative); Fentanyl Screen,Urine Negative (Negative); Opiate Screen,Urine Negative (Negative); THC Screen,Urine Negative (Negative)
--- NOTE | 2025-02-19 20:19 | ESHP_ITS ---
Documentation for date of: 02/19/25 HPI History of Present Illness Chief complaint: left sided face weakness History of present illness: The patient is a 46-year-old male with a previous medical history of hypertension, cocaine use who [facility] to left-sided face weakness, left-sided face numbness and left sided extremity weakness that started today when he woke up. He also reports pressure-like headache in the left hemicranial area, especially in the mormonism. He also reported increased sound sensitivity on the left side, and reported that he noticed that liquid food is leaking out of his mouth on the left side due to weakness. He denies traumas, recent cocaine use (stopped when he went to correction). He denies having headaches before in his life. He denies other medical conditions, had a admission in January 2024 due to the similar left-sided body weakness, stroke was ruled out. ED course: Blood pressure 171/104, heart rate 68, afebrile, saturating adequately on room air. Workup revealed hemoglobin of 17.5, UA was negative for signs of UTI, U tox was negative. EKG showed sinus rhythm. Head CT was negative for acute hemorrhage, mass effect. CTA head and neck was negative for neck arterial stenosis, large vessel occlusions intracranially, codominant vertebral arteries with no critical stenosis. Teleneuro was consulted, NIHSS score 7. PAtient was not a candidate for thrombolytic therapy. Differential diagnosis is acute stroke vs Mize' palsy. Patient is going to be admitted for the acute stroke rule out. 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 Medications: lisinopril, does not remember the rest of meds Review of Systems Review of Systems Systems Reviewed: All systems reviewed, normal except as documented Past Medical History Past Medical History CARDIAC: Positive Cardiac Disorders and Hypertension MUSCULOSKELETAL: Positive Fractures (right leg) PSYCHO/SOCIAL: Positive Recreational Drug Use, Depression and Anxiety Family History FAMILY HISTORY: Positive Family Cardiac Disorders Social History SMOKING STATUS: Current every day smoker Exam Vital Signs Temp Pulse Resp BP Pulse Ox O2 Del Method FiO2 98.7 F 67 17 156/97 H 96 Room Air 97 02/19/25 18:45 02/19/25 18:45 02/19/25 18:45 02/19/25 18:45 02/19/25 18:45 02/19/25 18:45 02/19/25 17:28 Narrative Exam Gen: Well-developed and well-nourished. HEENT: NCAT, PERRLA, EOMI, MMM, anicteric conjunctivae. Impaired left eye closing. CVS: normal S1 and S2. RRR. No M/R/G. Resp: CTA B/L. No rhonchi, rales, crackles or wheezing. Abd: soft, non-tender, non-distended. BS+ in all 4 quadrants. MSK: Good ROM in BUE & BLE. No edema or rash. Burn scar on the right calf. Neuro: Midline restricted left sided numbness. Midline restricted left sided torso numbness. Left sided tongue weakness. Gag reflex intact. Left sided facial droop, mild eyebrow sagging. Strength 5/5 in RUE & RLE. Strength 4/5 in LUE & LLE. Babinski downgoing bilaterally. Alert and oriented x3. Psych: appropriate mood and affect. Results: Labs 02/19/25 17:33 02/19/25 17:33 Labs: Short CBC 02/19/25 Range/Units 17:33 WBC 6.8 (3.8-10.6) Thou/mm3 Hgb 17.5 H (13.5-16.0) g/dL Hct 49.1 (41.0-53.0) % Plt Count 216 (140-440) Thou/mm3 BMP 02/19/25 17:33 Sodium 137 Potassium 4.4 Chloride 104 Carbon Dioxide 24.4 BUN 9 Creatinine 0.8 Glucose 97 Calcium 10.0 Cardiac Enzymes 02/19/25 Range/Units 17:33 Troponin I < 0.002 (0.0-0.045) ng/mL Liver Function 02/19/25 Range/Units 17:33 Total Bilirubin 0.7 (0.3-1.2) mg/dL AST 29 (0-34) U/L ALT 28 (10-49) U/L Alkaline Phosphatase 87 (46-116) U/L Albumin 4.4 (3.5-5.0) gm/dL Urine 02/19/25 Range/Units 18:45 Urine Color Colorless A (Lt Yel-Yel) Urine Clarity Clear (Clear/Hazy) Urine pH 7.0 (5.0-7.0) Ur Specific Crockett 1.031 (1.001-1.035) Urine Protein Negative (Neg - Trace) Urine Glucose (UA) Negative (Negative) Quality Measures Quality Measures VTE prophylaxis Medications Home Medications and Allergies Allergies Allergy/AdvReac Type Severity Reaction Status Date / Time No Known Allergies Allergy Verified 05/31/23 03:15 Visit Medications Acetaminophen (Acetaminophen 325 Mg Tablet) 650 mg PO Q6H PRN PRN Reason: Fever >100.3 or pain 1-3 Stop: 03/21/25 19:55 Aspirin (Aspirin Ec 81 Mg Tabec) 81 mg PO QDAY NUBIA Stop: 03/22/25 08:59 Atorvastatin Calcium (Atorvastatin Calcium 20 Mg Tablet) 80 mg PO HS NUBIA Stop: 03/22/25 20:59 Hydralazine HCl (Hydralazine Inj 20 Mg/Ml Vial) 5 mg IV Q2HR NUBIA Stop: 03/21/25 21:59 Ondansetron HCl (Ondansetron Inj 2 Mg/Ml Inj 2 Ml) 4 mg IV Q6HR PRN PRN Reason: NAUSEA OR VOMITING Stop: 03/21/25 17:27 Oxycodone/Acetaminophen (Oxycodone/Apap 5/325 Tablet) 1 tab PO Q6H PRN PRN Reason: PAIN SCALE 4-6 Stop: 02/24/25 19:55 Sennosides (Senna Tablet) 1 tab PO QDAY PRN; Protocol PRN Reason: constipation Stop: 03/21/25 19:55 Discontinued Medications Aspirin (Aspirin 325 Mg Tablet) 325 mg PO X1 ONE Stop: 02/19/25 18:26 Last Admin: 02/19/25 18:35 Dose: 325 mg Aspirin (Aspirin Ec 81 Mg Tabec) 81 mg PO X1 ONE Stop: 02/19/25 20:09 Last Admin: 02/19/25 20:11 Dose: Not Given Atorvastatin Calcium (Atorvastatin Calcium 20 Mg Tablet) 80 mg PO HS NUBIA Stop: 03/21/25 20:59 Ondansetron HCl (Ondansetron Inj 2 Mg/Ml Inj 2 Ml) 4 mg IV Q4HR PRN PRN Reason: NAUSEA OR VOMITING Stop: 03/21/25 17:27 Assessment & Plan Plan The patient is a 46-year-old male with a previous medical history of hypertension, cocaine use who was brought to the ED from [facility] due to left-sided face weakness, left-sided face numbness and left sided extremity weakness that started today when he woke up. Patient is going to be admitted for the acute stroke rule out. #Acute stroke rule out Ddx: pontine stroke vs Pugh's palsy Patient has peripheral left sided face weakness, left sided body weakness and numbness. CT head and CTA head and neck negative for acute stroke, LVO. Plan: - telemetry -q4 neurochecks -BP goal normotension, avoid drop in BP >15% in 24 hours -Euglycemia and euthermia -Aspirin 325mg x1 in ED -Aspirin 81mg daily -Would hold on steroids for Pugh's palsy treatment until MRI results -Atorvastatin 80mg qHS -LDL and A1c (goal LDL <70, goal A1c <7) -MRI Brain w/o contrast, -TTE w/ bubble -PT, speech therapy consults - passed swallow screen, dysphagia 2 diet -in-house neurology consult #Headache Ct negative for fracture, intracranial bleeding. Plan: - pain control as needed #Hypertension Plan: - will resume home lisinoprol medication in the morning - hydralazine PRN SBP>220/120 Health maintenance: FEN: dysphagia diet DVT prophylaxis: SCDs GI prophylaxis: none Dispo: telemetry CODE STATUS: Full code Plan of care discussed with attending Dr. Sauceda, PGY-[address] Fraga. Cynthia Jeffries MD, PGY 1. Attending Provider Attestation/Addendum 44-year-old male patient from [facility] was brought in because of left facial asymmetry. The patient feels weird on the left side of the face which facial droop and some mild weakness of the left arm and leg. The patient noticed this early in this morning around 7:00. She has been complaining of headache for the past [address] scan of the brain showed no acute infarction no hemorrhage. He has no large vessel occlusion or thrombus. Patient was admitted for stroke/TIA. Further imaging recommended. Discussed with housestaff.
[2025-02-19] MEDS: oxyCODONE/APAP 5/325 TABLET 1 TAB PO (21:02)
[2025-02-19] MEDS: ACETAMINOPHEN 325 MG TABLET 650 MG PO (23:20)
[2025-02-20] VITALS (10 sets, daily range): BP systolic 125–155; BP diastolic 77–103; PULSE 55–89; RESP 13–94; TEMP 36.1–36.7; O2SAT 96–100
--- NOTE | 2025-02-20 | XR_ITS ---
Examinations: MRI Brain without intravenous contrast. MRA brain without intravenous contrast. MRA carotids without intravenous contrast 3-D vascular reconstructions Date and time of exam: February 20, 2025 0630 hrs. Comparison March 17, 2024 Indications: Stroke alert February 19, 2025 onset left-sided facial numbness left-sided body weakness Technique: Multiple axial and sagittal images of the brain have been obtained MRA brain carotid images without contrast obtained, including 3-D postprocessing, vascular maximum intensity projection images Findings: Sellaturcica is not enlarged. The optic chiasm and infundibular stalk are not remarkable. Prepontine and interpeduncular cisterns are not enlarged. No localized enlargement of the medulla or shahana. Fourth ventricle and cerebellar tonsils normal in position. Subacute hemorrhage is not seen. Fourth ventricle is midline. Mass in the cerebellopontine angle region is not evident. 7th and 8th nerve complexes exhibits symmetry. Globes are symmetrical with no retro-orbital mass. Increased white matter signal not seen Diffusion-weighted images demonstrate no focus of restricted diffusion Mass-effect upon the ventricular system is not identified. MRA carotid images no significant carotid stenoses. MRA brain images no cerebral large vessel arterial occlusions Impression: Negative for acute hemorrhage mass effect or midline shift No acute infarct No MR findings diagnostic for demyelinating disease No significant carotid stenoses, no cerebral large vessel arterial occlusions
[2025-02-20] MEDS: HYDROmorphone INJ 2 MG/ML VIAL 0.5 MG IVP ×2 (02:34→21:07)
[2025-02-20 05:20] LABS: Basophils # (Auto) 0.1 Thou/mm3 (0.0-0.2); Basophils % (Auto) 1 % (0-2.5); Eosinophils # (Auto) 0.3 Thou/mm3 (0.0-0.5); Eosinophils % (Auto) 5 % (0-10); Hematocrit 49.8 % (41.0-53.0); Immature Granulocytes % (Auto) 0 % (0-0); Immature Granulocytes Auto 0.01 Thou/mm3 (0.00-0.00); Lymphocytes # (Auto) 2.1 Thou/mm3 (1.0-4.8); Lymphocytes % (Auto) 33 % (10-50); Mean Corpuscular HGB Conc 36.1 g/dl (31.0-37.0); Mean Corpuscular Hemoglobin 29.1 pg (25.0-35.0); Mean Corpuscular Volume 81 fL (80-100); Monocytes # (Auto) 0.5 Thou/mm3 (0.0-0.8); Monocytes % (Auto) 8 % (0-12); Neutrophils # (Auto) 3.4 Thou/mm3 (1.8-7.7); Neutrophils % (Auto) 53 % (37-80); Nucleated Red Blood Cell % 0 /100 WBC (0); Platelet Count 222 Thou/mm3 (140-440); RDW Standard Deviation 34.7 fL (35.1-43.9); Red Blood Count 6.19 Miln/mm3 (4.50-5.90); White Blood Count 6.4 Thou/mm3 (3.8-10.6)
[2025-02-20 05:48] LABS: Glucose Estimated Average 111 mg/dL (80-131); Hemoglobin A1C 5.5 % Hgb (4.8-6.0)
[2025-02-20 05:57] LABS: Alanine Aminotransferase 27 U/L (10-49); Albumin, Serum 4.3 gm/dL (3.5-5.0); Albumin/Globulin Ratio 1.5 (1.2-2.2); Alkaline Phosphatase 88 U/L (46-116); Anion Gap 9 (7-16); Aspartate Amino Transferase 28 U/L (0-34); BUN/Creatinine Ratio 10 Ratio (12-20); Bilirubin,Total 0.9 mg/dL (0.3-1.2); Blood Urea Nitrogen 9 mg/dL (9-23); Calcium 9.7 mg/dL (8.3-10.6); Calcium (Corrected) 9.7 mg/dL (8.5-10.1); Carbon Dioxide 28.2 mMol/L (20.0-31.0); Cardiac Risk Estimate 4.2 RATIO (4.0-6.7); Chloride 102 mMol/L (98-107); Cholesterol 182 mg/dL (132-200); Creatinine (Component) 0.9 mg/dL (0.6-1.3); Estimated Creatinine Clearance 108.9 mL/min (>60); Globulin 2.9 gm/dL (2.3-3.5); Glucose 95 mg/dL (74-106); HDL Cholesterol 43 mg/dL (40-60); LDL Cholesterol,Calculated 98 mg/dL (0-130); Magnesium 2.1 mg/dL (1.6-2.6); Osmolality,Calculated 276 (275-295); Phosphorous 4.4 mg/dL (2.4-5.1); Potassium 4.3 mMol/L (3.4-5.1); Sodium 139 mMol/L (136-145); Thyroid Stimulating Hormone 5.67 uIU/mL (0.55-4.78); Total Protein 7.2 gm/dL (5.7-8.2); Triglycerides 205 mg/dL (30-150); eGFR > 60 See Note
[2025-02-20] MEDS: ASPIRIN EC 81 MG TABEC PO (08:50)
[2025-02-20] MEDS: Lisinopril 20 MG TABLET PO (08:50)
[2025-02-20] MEDS: oxyCODONE/APAP 5/325 TABLET 1 TAB PO ×2 (08:51→17:06)
--- NOTE | 2025-02-20 10:56 | ESPR_ITS ---
<Statement entered by Grabiel Somers MD - 02/21/25 08:03> Patient coming in with complaints of facial droopiness. MRI negative. 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 Will likely DC tomorrow. Case discussed with team. Grabiel Somesr MD PGY3 Documentation for date of: 02/20/25 Subjective Subjective Interval history: Pt is an overnight admit. Pt is seen and examined at bedside this morning. Pt states he started having have severe headache for 3 days and woke up yesterday with left side facial droop and left side weakness in upper and lower extremities. Pt also has blurry vision in the left side. Pt denies any sick contacts, denies chest pain, palpitation, abdominal pain or diarrhea. vitals are stable, significant labs include Hgb 18.0, triglycerides 205, TSH 5.67 Exam Vital Signs Temp Pulse Resp BP Pulse Ox O2 Del Method FiO2 97.1 F 87 20 138/103 H 100 Room Air 97 02/20/25 08:00 02/20/25 10:40 02/20/25 10:40 02/20/25 08:50 02/20/25 08:00 02/20/25 08:00 02/19/25 17:28 Narrative Exam GENERAL: A&Ox3 . Awake, Not in acute distress HEENT: Atraumatic, Normocephalic. mucous membranes moist. HEART: Normal Heart Sounds LUNGS: Clear to auscultation with no wheezing or crackles. ABDOMEN: soft, non-distended, non-tender, bowel sounds heard, no guarding or rebound tenderness SKIN: No Rash or ecchymoses EXTREMITIES: No edema, tenderness, able to move all 4 extremities, pedal pulses palpated NEURO:? ? MENTAL STATUS:?AAOx3 ? LANG/SPEECH: Fluent, intact naming, repetition & comprehension ? CRANIAL NERVES: ? II: Pupils equal and reactive, no RAPD,?normal visual field and fundus ? III, IV, : EOM intact, no gaze preference or deviation ? V: normal ? VII: left side facial droop ? VIII: normal hearing to speech ? MOTOR: 5/5 in right upper and lower extremities, 4/5 in left upper and lower extremities ? SENSORY: Normal to touch, temperature & pin prick in all extremities ? COORD: Normal finger to nose, no tremor, no dysmetria Objective Labs 02/21/25 04:00 02/21/25 04:00 Labs: Laboratory Results - last 24 hr 02/19/25 02/19/25 02/20/25 17:33 18:45 04:47 WBC 6.8 6.4 RBC 6.04 H 6.19 H Hgb 17.5 H 18.0 H* Hct 49.1 49.8 MCV 81 81 MCH 29.0 29.1 MCHC 35.6 36.1 RDW Std Deviation 35.7 34.7 L Plt Count 216 222 Neut % (Auto) 58 53 Lymph % (Auto) 29 33 [place] % (Auto) 8 8 Eos % (Auto) 4 5 Baso % (Auto) 1 1 Neut # (Auto) 3.9 3.4 Lymph # (Auto) 2.0 2.1 [place] # (Auto) 0.6 0.5 Eos # (Auto) 0.3 0.3 Baso # (Auto) 0.1 0.1 Immature Gran # (Auto) 0.01 H 0.01 H Absolute Nucleated RBC 0.00 0.00 Immature Gran % 0 0 Nucleated RBC % 0 0 PT 10.9 INR 1.0 APTT 23.0 Sodium 137 139 Potassium 4.4 4.3 Chloride 104 102 Carbon Dioxide 24.4 28.2 Anion Gap 9 9 BUN 9 9 Creatinine 0.8 0.9 Estim Creat Clear Calc 122.5 108.9 eGFR > 60 > 60 BUN/Creatinine Ratio 11 L 10 L Glucose [address] Glu mg/dL 111 Hemoglobin A1c 5.5 Calculated Osmolality 272 L 276 Calcium 10.0 9.7 Corrected Calcium 10.0 9.7 Phosphorus 4.4 Magnesium 2.2 2.1 Total Bilirubin 0.7 0.9 AST 29 28 ALT 28 27 Alkaline Phosphatase 87 88 Troponin I < 0.002 Total Protein 7.5 7.2 Albumin 4.4 4.3 Globulin 3.1 2.9 Albumin/Globulin Ratio 1.4 1.5 Triglycerides 205 H Cholesterol 182 LDL Cholesterol, Calc 98 HDL Cholesterol 43 Cholesterol/HDL Ratio 4.2 TSH 5.67 H Ur Collection Type Clean Catch Urine Color Colorless A Urine Clarity Clear Urine pH 7.0 Ur Specific [place] 1.031 Urine Protein Negative Urine Glucose (UA) Negative Urine Ketones Negative Urine Blood Negative Urine Nitrite Negative Urine Bilirubin Negative Urine Urobilinogen (Auto) Negative Ur Leukocyte Esterase Negative Urine RBC 2 Urine WBC < 1 Ur Squamous Epith Cells < 1 Urine Bacteria None Urine Opiates Screen Negative Urine Fentanyl Screen Negative Ur Barbiturates Screen Negative U Amphetamin/Meth Scrn Negative U Benzodiazepines Scrn Negative U Cocaine Metab Screen Negative U Marijuana (THC) Screen Negative Quality Measures Quality Measures VTE prophylaxis Assessment & Plan Assessment Current Active Medications: Generic Name Dose Route Start Last Admin Trade Name Freq PRN Reason Stop Dose Admin Acetaminophen 650 mg 02/19/25 19:56 02/19/25 23:20 Acetaminophen 325 Mg Tablet PO 03/21/25 19:55 650 mg Q6H PRN Administration Fever >100.3 or pain 1-3 Aspirin 81 mg 02/20/25 09:00 02/20/25 08:50 Aspirin Ec 81 Mg Tabec PO 03/22/25 08:59 81 mg QDAY NUBIA Administration Atorvastatin Calcium 80 mg 02/20/25 21:00 Atorvastatin Calcium 20 Mg Tablet PO 03/22/25 20:59 HS NUBIA Hydralazine HCl 5 mg 02/19/25 20:41 Hydralazine Inj 20 Mg/Ml Vial IV 03/21/25 21:59 Q2HR PRN SBP >220 or DBP >120 Lisinopril 20 mg 02/20/25 09:00 02/20/25 08:50 Lisinopril 20 Mg Tablet PO 03/22/25 08:59 20 mg QDAY NUBIA Administration Ondansetron HCl 4 mg 02/19/25 20:02 Ondansetron Inj 2 Mg/Ml Inj 2 Ml IV 03/21/25 17:27 Q6HR PRN NAUSEA OR VOMITING Oxycodone/Acetaminophen 1 tab 02/19/25 19:56 02/20/25 08:51 Oxycodone/Apap 5/325 Tablet PO 02/24/25 19:55 1 tab Q6H PRN Administration PAIN SCALE 4-6 Sennosides 1 tab 02/19/25 19:56 Senna Tablet PO 03/21/25 19:55 QDAY PRN constipation Protocol Plan Mr. Mcallister is a 46-year-old male with a previous medical history of hypertension, cocaine use who was brought to the ED from [facility] due to left-sided face weakness, left-sided face numbness and left sided extremity weakness that started today when he woke up. Patient is going to be admitted for the acute stroke rule out. #Sever [place] Palsy, left sided -Pt presented with facial droop of the left side and unable to close his left eye for 1 day -Pt is started on prednisone 80mg daily for 7 days -Pt is also started on acyclovir 400mg % times a day for 10 days -Artificial tears ordered for lubricating eye #Erythrocytosis -Hgb 18.0, all other labs are within normal limits -Ordered peripheral blood smear #Acute stroke- rule out Ddx: pontine stroke vs Pugh's palsy Patient has peripheral left sided face weakness, left sided body weakness and numbness. CT head and CTA head and neck negative for acute stroke, LVO. Head MRI with MRA and CTA of head and neck is negative for stroke Plan: -q4 neurochecks -BP goal normotension, avoid drop in BP >15% in 24 hours -Euglycemia and euthermia -Aspirin 325mg x1 in ED -Aspirin 81mg daily -Atorvastatin 80mg qHS -TTE w/ bubble- negative bubble study, normal LV and RV size and function. EF 60 to 65% -PT, speech therapy consults -passed swallow screen, dysphagia 2 diet -in-house neurology consult #Headache Ct negative for fracture, intracranial bleeding. Plan: - pain control as needed #Hypertension -resumed home lisinopril -hydralazine PRN SBP>220/120 #?Hepatitis C -Pt's serology for Hep C antibody is reactive on 03/17/24. Pt would need outpatient follow up with primary care for further viral load work up and possible referral to pediatrics hospitalist for treatment. Health maintenance: FEN: dysphagia diet DVT prophylaxis: SCDs GI prophylaxis: none Dispo: telemetry CODE STATUS: Full code Assessment and plan discussed with my senior resident Dr. Somers & attending physician Dr. Chapin Walker (PGY-1)- Internal medicine resident Attending Provider Attestation/Addendum I attest that I was physically present for the evaluation, physical examination, lab and imaging review of the patient with the residents. I discussed the case with the residents and agree with the findings and plans of care as documented above. Patient is a 46 years old male with past medical cocaine abuse who was brought from [facility] with complaint of left-sided facial and limb weakness. He was admitted overnight for Pugh's palsy versus acute CVA. CVA workup has been negative including MRI with MRA. At bedside, patient has significant left facial droop. Also complains of headache on the left side with blurry vision. We will obtain ESR and CRP. Started patient on prednisone 80 daily along with acyclovir 400 mg 5 times a day for Pugh's palsy. Started on artificial tears for eye protection. Patient passed bedside swallow, started on diet. We will obtain speech therapy and physical therapy. Echocardiography was negative for bubble study and findings are within normal limits. Patient has also been started on aspirin and statin. Awaiting neurology recommendations. Wendy Samson MD
--- NOTE | 2025-02-20 10:58 | PD.RESPRO ---
Documentation for date of: 02/20/25 Subjective Subjective Interval history: Patient seen and examined at bedside. He is a 44-year-old male with a past medical history of hypertension, cocaine and marijuana use who was brought into the ED on 02/19/2025 from [facility] with complaints of left-sided facial weakness, numbness and weakness in his left lower extremity started on awakening. Also endorsed pressure-like headache in the left mandaeism with hyperacusis. Reports that he has had migraines in the past in the same location, but this headache feels little worse than usual. In the ED, teleneuro was consulted, NIHSS was 7 and patient was admitted for evaluation of Pugh's palsy with CVA rule out. Head CT was done as well as CTA and is negative. MRI brain also negative. At bedside today, patient still complains of headache and examination still has left-sided facial paralysis. 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 Strength in left upper extremity about 4/5 as well as lower. Facial nerve examination-inadequate left eye closure, flattened nasolabial fold on the left, loss of wrinkling of the forehead on the left. Normal reflexes. HEENT: Moist mucosa. Pupils reactive to light bilaterally, difficulty occlusion in the left eye. CARDIO: No chest pain on palpation. Heart RRR, no obvious murmurs PULM: No noted coughing/dyspnea. Lungs CTA B/L GI: Abdomen soft, nondistended, no pain on palpation. BSx4 URO/DATA SME:: No further abnormalities noted. SKIN/MSK/EXT: No wounds/rashes/edema/amputations, no pain on palpation. Pedal pulses present B/L Objective Labs 02/20/25 04:47 02/20/25 04:47 Labs: Laboratory Results - last 24 hr 02/19/25 02/19/25 02/20/25 17:33 18:45 04:47 WBC 6.8 6.4 RBC 6.04 H 6.19 H Hgb 17.5 H 18.0 H* Hct 49.1 49.8 MCV 81 81 MCH 29.0 29.1 MCHC 35.6 36.1 RDW Std Deviation 35.7 34.7 L Plt Count 216 222 Neut % (Auto) 58 53 Lymph % (Auto) 29 33 [place] % (Auto) 8 8 Eos % (Auto) 4 5 Baso % (Auto) 1 1 Neut # (Auto) 3.9 3.4 Lymph # (Auto) 2.0 2.1 [place] # (Auto) 0.6 0.5 Eos # (Auto) 0.3 0.3 Baso # (Auto) 0.1 0.1 Immature Gran # (Auto) 0.01 H 0.01 H Absolute Nucleated RBC 0.00 0.00 Immature Gran % 0 0 Nucleated RBC % 0 0 PT 10.9 INR 1.0 APTT 23.0 Sodium 137 139 Potassium 4.4 4.3 Chloride 104 102 Carbon Dioxide 24.4 28.2 Anion Gap 9 9 BUN 9 9 Creatinine 0.8 0.9 Estim Creat Clear Calc 122.5 108.9 eGFR > 60 > 60 BUN/Creatinine Ratio 11 L 10 L Glucose [address] Glu mg/dL 111 Hemoglobin A1c 5.5 Calculated Osmolality 272 L 276 Calcium 10.0 9.7 Corrected Calcium 10.0 9.7 Phosphorus 4.4 Magnesium 2.2 2.1 Total Bilirubin 0.7 0.9 AST 29 28 ALT 28 27 Alkaline Phosphatase 87 88 Troponin I < 0.002 Total Protein 7.5 7.2 Albumin 4.4 4.3 Globulin 3.1 2.9 Albumin/Globulin Ratio 1.4 1.5 Triglycerides 205 H Cholesterol 182 LDL Cholesterol, Calc 98 HDL Cholesterol 43 Cholesterol/HDL Ratio 4.2 TSH 5.67 H Ur Collection Type Clean Catch Urine Color Colorless A Urine Clarity Clear Urine pH 7.0 Ur Specific [place] 1.031 Urine Protein Negative Urine Glucose (UA) Negative Urine Ketones Negative Urine Blood Negative Urine Nitrite Negative Urine Bilirubin Negative Urine Urobilinogen (Auto) Negative Ur Leukocyte Esterase Negative Urine RBC 2 Urine WBC < 1 Ur Squamous Epith Cells < 1 Urine Bacteria None Urine Opiates Screen Negative Urine Fentanyl Screen Negative Ur Barbiturates Screen Negative U Amphetamin/Meth Scrn Negative U Benzodiazepines Scrn Negative U Cocaine Metab Screen Negative U Marijuana (THC) Screen Negative Quality Measures Quality Measures VTE prophylaxis Assessment & Plan Assessment Current Active Medications: Generic Name Dose Route Start Last Admin Trade Name Freq PRN Reason Stop Dose Admin Acetaminophen 650 mg 02/19/25 19:56 02/19/25 23:20 Acetaminophen 325 Mg Tablet PO 03/21/25 19:55 650 mg Q6H PRN Administration Fever >100.3 or pain 1-3 Aspirin 81 mg 02/20/25 09:00 02/20/25 08:50 Aspirin Ec 81 Mg Tabec PO 03/22/25 08:59 81 mg QDAY NUBIA Administration Atorvastatin Calcium 80 mg 02/20/25 21:00 Atorvastatin Calcium 20 Mg Tablet PO 03/22/25 20:59 HS NUBIA Hydralazine HCl 5 mg 02/19/25 20:41 Hydralazine Inj 20 Mg/Ml Vial IV 03/21/25 21:59 Q2HR PRN SBP >220 or DBP >120 Lisinopril 20 mg 02/20/25 09:00 02/20/25 08:50 Lisinopril 20 Mg Tablet PO 03/22/25 08:59 20 mg QDAY NUBIA Administration Ondansetron HCl 4 mg 02/19/25 20:02 Ondansetron Inj 2 Mg/Ml Inj 2 Ml IV 03/21/25 17:27 Q6HR PRN NAUSEA OR VOMITING Oxycodone/Acetaminophen 1 tab 02/19/25 19:56 02/20/25 08:51 Oxycodone/Apap 5/325 Tablet PO 02/24/25 19:55 1 tab Q6H PRN Administration PAIN SCALE 4-6 Sennosides 1 tab 02/19/25 19:56 Senna Tablet PO 03/21/25 19:55 QDAY PRN constipation Protocol Plan Summary: The patient is a seen and examined at bedside. He is a 44-year-old male with a past medical history of hypertension, cocaine and marijuana use who was brought into the ED on 02/19/2025 from [facility] with complaints of left-sided facial weakness, numbness and weakness in his left lower extremity started on awakening. Admitted for evaluation of Pugh's palsy with CVA rule out. #Facial nerve palsy #Likely lower motor neuron lesion #CVA ruled out complaints of left-sided facial weakness, numbness and weakness in his left lower extremity started on awakening. Also endorsed pressure-like headache in the left mandaeism with hyperacusis. Reports that he has had migraines in the past in the same location, but this headache feels little worse than usual. In the ED, teleneuro was consulted, NIHSS was 7 and patient was admitted for evaluation of Pugh's palsy with CVA rule out. Head CT was done as well as CTA and is negative. MRI brain also negative. At bedside today, patient still complains of headache and examination still has left-sided facial paralysis. Plan: -Prednisone 60 mg daily -Eye protective measures: Lubricating eyedrops, ointment or eye patch. -Serial reevaluations for recovery. Case was discussed with attending physician, Dr Du Daugherty MD PGY-1 Disclaimer: This note was dictated by speech recognition. Minor errors in sap solution manager consultant may be present due to voice recognition software. Attending Provider Attestation/Addendum I personally have seen and examined the patient at the bedside and agree with resident's findings, assessment and plan of care. 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 He will benefit from prednisone 60 mg a day for 5 days and then wean him slowly off of prednisone by taking 10 mg less every day to completely off along with acyclovir 800 mg every 8 hours. He is also advised to do massage and exercises for the facial muscles.
--- NOTE | 2025-02-20 11:39 | PC.PT ---
Patient is safe to ambulate to the bathroom with 1 staff assist and DME as needed for safety since patient ambulates about the same with and without DME. RN made aware.
[2025-02-20 12:14] LABS: Sed Rate (ESR) 1 mm/hr (0-15)
[2025-02-20 12:25] LABS: C-Reactive Protein < 0.5 mg/dL (0.0-0.9)
[2025-02-20] MEDS: ACYCLOVIR 200 MG CAPSULE 400 MG PO ×3 (13:36→21:06)
[2025-02-20] MEDS: predniSONE 20 MG TABLET 80 MG PO (13:36)
--- NOTE | 2025-02-20 15:26 | PC.SS ---
SS met with pt regarding his d/c plan.? Pt is from [facility] and per officer, Cory pt will return upon dc.? Pt was admitted for Stroke Rule Out.? Prior to being hospitalized pt was ambulating independently and without assistance.? Pt was ok with all ADLs.? Pt updated his friend, Roxanna Castellanos' phone# [phone].? SS has contacted Nikole from pt registration to updated patient's facesheet with the correct contact information.? Per officer as long as pt is under their care [facility] makes patient's medical decisions. DC Plan:? Return to [facility]
--- NOTE | 2025-02-20 20:11 | ECHO_ITS ---
Transthoracic Echo Report Ht (in): 67 Wt (lb): 195 Exam Location: Portable Status: Inpatient Nut Culler: CHI Wright^^^^ Indications: Procedure Performed: BP: / HR: MEASUREMENTS (Male / Female) Normal Values 2D ECHO LV Diastolic Diameter PLAX 5.3 cm 4.2 - 5.9 / 3.9 - 5.3 cm LV Systolic Diameter PLAX 3.4 cm IVS Diastolic Thickness 0.7 cm 0.6 - 1.0 / 0.6 - 0.9 cm LVPW Diastolic Thickness 0.9 cm 0.6 - 1.0 / 0.6 - 0.9 cm LV Relative Wall Thickness 0.3 LVOT Diameter 1.9 cm Aortic Root Diameter 3.2 cm LA Systolic Diameter LX 3.9 cm 3.0 - 4.0 / 2.7 - 3.8 cm LV Ejection Fraction MOD 4C 71.4 % LV Ejection Fraction 4C AL 72.1 % LA Volume Index 28.0 cm?/m? 16 - 28 cm?/m? Ascending Aorta Diameter 2.9 cm DOPPLER AV Peak Velocity 141.0 cm/s AV Peak Gradient 8.0 mmHg AV Mean Gradient 4.0 mmHg AV Velocity Time Integral 20.8 cm LVOT Peak Velocity 105.0 cm/s LVOT Peak Gradient 4.4 mmHg LVOT Velocity Time Integral 23.6 cm AV Area Cont Eq vti 3.2 cm? AV Area Cont Eq pk 2.1 cm? MV Area PHT 2.3 cm? Mitral E Point Velocity 65.9 cm/s Mitral A Point Velocity 81.8 cm/s Mitral E to A Ratio 0.8 LV E' Lateral Velocity 11.3 cm/s Mitral E to LV E' Lateral Ratio 5.8 LV E' Septal Velocity 9.0 cm/s Mitral E to LV E' Septal Ratio 7.3 TR Peak Velocity 150.0 cm/s TR Peak Gradient 9.0 mmHg PV Peak Velocity 121.0 cm/s PV Peak Gradient 5.9 mmHg RVOT Peak Velocity 87.2 cm/s FINDINGS Left Ventricle Normal left ventricular size, wall thickness, systolic function with no obvious regional wall motion abnormalities. There is grade I diastolic dysfunction of the left ventricle (impaired relaxation pattern). The left ventricular ejection fraction is normal, estimated at 60-65%. Right Ventricle The right ventricle is normal in size and systolic function. The estimated right ventricular systolic pressure, 15 mmHg. Left Atrium The left atrium is normal by two-dimensional, color flow and Doppler imaging with no structural abnormalities, no thrombus formation present. Right Atrium The right atrium is normal by two-dimensional imaging, color flow and Doppler imaging with no structural abnormalities, no thrombus formation present. Atrial Septum The interatrial septum is normal to color flow Doppler and agitated saline imaging. Aorta The aorta is normal by two-dimensional, color flow and Doppler interrogation. Mitral Valve Trace mitral regurgitation. Aortic Valve The aortic valve is trileaflet and normal by two-dimensional, color flow and Doppler interrogation. There is no significant aortic valve regurgitation. Tricuspid Valve There is trace tricuspid valve regurgitation. Pulmonic Valve Trivial pulmonic valve regurgitation. Vessels The pulmonary artery appears normal. The inferior vena cava pulmonary and hepatic veins appear normal. Pericardium The pericardium is normal by two-dimensional imaging. There is no significant pericardial effusion. CONCLUSIONS Indication: Stroke I will study negative for any PFO or ASD. TTE suboptimal and consider SUBHA if high clinical risk of suspicion. Normal LV size and function. Estimated EF is 60 to 65%. Normal diastolic function. Normal RV size and function with normal RVSP. Trace MR and mild TR. Ahsan Sanders (Electronically Signed) Final Date: 20 February 2025 16:00
[2025-02-20] MEDS: ATORVASTATIN CALCIUM 20 MG TABLET 80 MG PO (21:06)
[2025-02-21] VITALS (9 sets, daily range): BP systolic 104–124; BP diastolic 71–83; PULSE 63–76; RESP 17–96; TEMP 35.9–36.8; O2SAT 94–98; BMI 30.5
[2025-02-21 05:12] LABS: Basophils % (Auto) 0 % (0-2.5); Eosinophils # (Auto) 0.1 Thou/mm3 (0.0-0.5); Eosinophils % (Auto) 0 % (0-10); Hematocrit 50.5 % (41.0-53.0); Hemoglobin 17.8 g/dL (13.5-16.0); Immature Granulocytes % (Auto) 0 % (0-0); Immature Granulocytes Auto 0.05 Thou/mm3 (0.00-0.00); Lymphocytes # (Auto) 1.7 Thou/mm3 (1.0-4.8); Lymphocytes % (Auto) 13 % (10-50); Mean Corpuscular HGB Conc 35.2 g/dl (31.0-37.0); Mean Corpuscular Hemoglobin 28.8 pg (25.0-35.0); Mean Corpuscular Volume 82 fL (80-100); Monocytes # (Auto) 0.5 Thou/mm3 (0.0-0.8); Monocytes % (Auto) 4 % (0-12); Neutrophils # (Auto) 10.4 Thou/mm3 (1.8-7.7); Neutrophils % (Auto) 82 % (37-80); Nucleated Red Blood Cell % 0 /100 WBC (0); Platelet Count 254 Thou/mm3 (140-440); RDW Standard Deviation 35.1 fL (35.1-43.9); Red Blood Count 6.18 Miln/mm3 (4.50-5.90); White Blood Count 12.8 Thou/mm3 (3.8-10.6)
[2025-02-21] MEDS: oxyCODONE/APAP 5/325 TABLET 1 TAB PO ×2 (05:17→11:25)
[2025-02-21] MEDS: ACYCLOVIR 200 MG CAPSULE 400 MG PO ×3 (05:17→13:42)
[2025-02-21 05:38] LABS: Alanine Aminotransferase 22 U/L (10-49); Albumin, Serum 4.4 gm/dL (3.5-5.0); Albumin/Globulin Ratio 1.5 (1.2-2.2); Alkaline Phosphatase 88 U/L (46-116); Anion Gap 9 (7-16); Aspartate Amino Transferase 20 U/L (0-34); BUN/Creatinine Ratio 15 Ratio (12-20); Bilirubin,Total 1.3 mg/dL (0.3-1.2); Blood Urea Nitrogen 12 mg/dL (9-23); Carbon Dioxide 24.1 mMol/L (20.0-31.0); Chloride 104 mMol/L (98-107); Creatinine (Component) 0.8 mg/dL (0.6-1.3); Estimated Creatinine Clearance 122.5 mL/min (>60); Free T4 (Free Thyroxine) 1.17 ng/dL (0.89-1.76); Globulin 2.9 gm/dL (2.3-3.5); Glucose 107 mg/dL (74-106); Osmolality,Calculated 273 (275-295); Potassium 4.3 mMol/L (3.4-5.1); Sodium 137 mMol/L (136-145); Total Protein 7.3 gm/dL (5.7-8.2); eGFR > 60 See Note
[2025-02-21] MEDS: ACETAMINOPHEN 325 MG TABLET 650 MG PO (07:36)
[2025-02-21 09:39] LABS: Path Review Blood Smear Sent to Pathologist
[2025-02-21] MEDS: ASPIRIN EC 81 MG TABEC PO (09:53)
[2025-02-21] MEDS: predniSONE 20 MG TABLET 80 MG PO (09:54)
[2025-02-21] MEDS: Lisinopril 20 MG TABLET PO (09:54)
--- NOTE | 2025-02-21 11:29 | PC.SS ---
SS follow up note; Patient will discharge back to [facility] today.
--- NOTE | 2025-02-21 13:25 | ESDS_ITS ---
Planned Discharge Date 02/21/25 DS: Providers Provider Date of admission: 02/19/25 19:56 Primary care physician: Physician No Primary/Family Admitting Provider: Sean Sauceda MD Attending Provider on Admission: Wendy Samson MD Consults: 02/19/25 17:28 Consult to Neurology / Tele-Neurology Routine Comment: Consulting Provider: [facility] 02/19/25 20:02 Referral Physical Therapy Routine Comment: Physician Instructions: Referral Speech Therapy Routine Comment: 02/19/25 20:03 Consult to Neurology / Tele-Neurology Stat Comment: ddx pugh's palsy/acute stroke Consulting Provider: Chris Sandy Attending Provider on DC: Franklyn Walker MD Discharging Provider: Franklyn Walker MD DS: Diagnosis Problem List Completed Was Problem List Reviewed/Reconciled?: Yes Hospital Course Hospital Course Hospital course: Mr. Mcallister is a 46-year-old male with a previous medical history of hypertension, cocaine use who was brought to [facility] ED from [facility] due to left-sided face weakness, left-sided face numbness and left sided extremity weakness. Patient was admitted for acute stroke rule out. Patient underwent CT of the head, CTA of head and neck, MRI with MRA came back negative for stroke. Patient was diagnosed with severe left sided Pugh's palsy and was started on prednisone and acyclovir. Patient was also seen by neurologist who recommended for patient to continue prednisone taper and acyclovir for additional 9 days upon discharge. Patient is to take prednisone 60 mg daily for 3 days and then 50 mg for 1 day, 40 mg for 1 day, 30 mg for 1 day, 20 mg for 1 day, and 10 mg. Physical therapy saw the patient and recommended acute rehab however since patient is from nursing home he would need to f ollow-up outpatient physical therapy upon dismissal from nursing home. Upon chart reviewing patient was also found to have hepatitis C antibody positive in 2023 for which patient states that he received treatment in nursing home patient is advised to follow-up outpatient with primary care physician to confirm resolution and viral load of hepatitis C. Patient is hemodynamically stable signout is given to the physician at the formerly [facility] and patient is ready to be discharged back to the facility. Discharge Recommendations -Follow up with your primary care physician within 2 weeks -Although PT recommended SNF placement, please go to physical therapy outpatient -You have been prescribed prednisone with a taper, please take it as prescribed and complete acyclovir for additional 9 days -If your headache continues, please take Tylenol or ibuprofen as needed -if your symtoms worsen or return, promptly return to the ED Hospitalization Diagnosis #Severe [place] Palsy, left sided #Erythrocytosis #Acute stroke- rule out #Headache #Hypertension #?Hepatitis C Assessment and plan discussed with my attending physician Dr. Chapin Walker (PGY-1)- Internal medicine resident Time Spent with Patient Time attestation: Total time spent providing and/or coordinating discharge services: Time spent: Greater than 30 minutes Exam Vital Signs Temp Pulse Resp BP Pulse Ox O2 Del Method FiO2 97.8 F 65 18 123/83 98 Room Air 97 02/21/25 11:19 02/21/25 11:19 02/21/25 11:19 02/21/25 11:19 02/21/25 11:19 02/21/25 11:19 02/19/25 17:28 Narrative Exam GENERAL: A&Ox3 . Awake, Not in acute distress HEENT: Atraumatic, Normocephalic. mucous membranes moist. HEART: Normal Heart Sounds LUNGS: Clear to auscultation with no wheezing or crackles. ABDOMEN: soft, non-distended, non-tender, bowel sounds heard, no guarding or rebound tenderness SKIN: No Rash or ecchymoses EXTREMITIES: No edema, tenderness, able to move all 4 extremities, pedal pulses palpated NEURO:? ? MENTAL STATUS:?AAOx3 ? LANG/SPEECH: Fluent, intact naming, repetition & comprehension ? CRANIAL NERVES: ? II: Pupils equal and reactive, no RAPD,?normal visual field and fundus ? III, IV, : EOM intact, no gaze preference or deviation ? V: normal ? VII: left side facial droop ? VIII: normal hearing to speech ? MOTOR: 5/5 in right upper and lower extremities, 4/5 in left upper and lower extremities ? SENSORY: Normal to touch, temperature & pin prick in all extremities ? COORD: Normal finger to nose, no tremor, no dysmetria Discharge Plan Plan Patient Disposition: Senior Living/Court/Law Patient condition on transfer: Stable Care Plan Goals: -Follow up with your primary care physician within 2 weeks -Please continue outpatient physical therapy -You have been prescribed prednisone with a taper, please take it as prescribed and complete acyclovir for additional 9 days -If your headache continues, please take Tylenol or ibuprofen as needed -if your symtoms worsen or return, promptly return to the ED Prescriptions/Referrals Prescriptions/Med Rec: New acetaminophen [Tylenol] 325 mg Tablet 650 mg PO Q6H PRN (Reason: Fever >100.3 or pain 1-3) Qty: 30 0RF artificial tear([id number]) 0.1-0.3-0.2 % Drops 1 drp Left eye PRN PRN (Reason: To Keep Eyes Moist) Qty: 1 0RF pantoprazole 40 mg tablet,delayed release (DR/EC) 40 mg PO QDAY Qty: 30 0RF prednisone 10 mg tablet See Taper PO QDAY Qty: 33 0RF Taper: Prednisone Taper 60 mg DAILY for 3 Days and 0 Hour 50 mg DAILY for 1 Day and 0 Hour 40 mg DAILY for 1 Day and 0 Hour 30 mg DAILY for 1 Day and 0 Hour 20 mg DAILY for 1 Day and 0 Hour 10 mg DAILY for 1 Day and 0 Hour Rx Instructions: You will take 60mg for 3 days, 50mg for 1 day, 40mg for 1 day, 30 mg for 1 day, 20mg for 1 day and 10mg for 1 day. acyclovir 800 mg tablet 800 mg PO TID 9 Days Qty: 27 0RF Continued atorvastatin 40 mg tablet 40 mg PO HS 30 Days Qty: 30 6RF lisinopril 20 mg Tablet 20 mg PO QDAY 30 Days Qty: 30 6RF Discontinued amlodipine 10 mg tablet 10 mg PO QDAY 30 Days Qty: 30 6RF nicotine 21 mg/24 hr patch 24 hour 14 mg topical QDAY 30 Days Qty: 30 6RF Referrals: No Primary/Family,Physician [Primary Care Provider] - Patient/Caregiver Discharge Instructions Education Materials: Pugh's Palsy Print Language: Lithuanian Discharge Order Discharge Orders: Discharge (Routine); Ordered 02/21/25 Ordered By: Franklyn Walker Quality Discharge Quality Measures VTE prophylaxis Attestestation Attestation I attest that I was physically present for the evaluation, physical examination, lab and imaging review of the patient with the residents. I discussed the case with the residents and agree with the findings and plans of care as documented above. Wendy Samson MD
== END 2025-02-21 15:29 | DRG 48 ==
LOC: SERX 19:03 → SERHOLD 20:12 → S2NX 22:18 → S3NX 02-20 16:47
PROVIDERS: Emergency Medicine; Admitting Provider Internal Medicine; Emergency Provider Emergency Medicine; Visit Provider Student in an Organized Health Care Education/Training Program
DX: G51.0 Bell's palsy (principal); I10 Essential (primary) hypertension; F14.10 Cocaine abuse, uncomplicated; F17.200 Nicotine dependence, unspecified, uncomplicated; D75.1 Secondary polycythemia; G43.909 Migraine, unspecified, not intractable, without status migrainosus; B19.20 Unspecified viral hepatitis C without hepatic coma; Z79.899 Other long term (current) drug therapy
CPT/HCPCS: 36415; 70450; 70496; 70498; 70544; 80053; 80061; 80307; 81001; 83036; 83735; 84100; 84439; 84443; 84484; 85025; 85610; 85652; 85730; 86140; 87086; 93005; 93306; 97162; 99285; A4649; J1171; J7512; Q9967; A9270

== ENCOUNTER 2025-02-24 10:24 | Inpatient (IN) | payer MEDICAID, SELFPAY ==
[2025-02-24] VITALS (11 sets, daily range): BP systolic 142–192; BP diastolic 98–131; PULSE 64–99; RESP 12–98; TEMP 36.1–36.6; O2SAT 95–100; BMI 27.5; BMI 31.1
--- NOTE | 2025-02-24 10:26 | EKG_ITS ---
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
--- NOTE | 2025-02-24 10:26 | EDNOTE_ITS ---
Neuro Symptoms Deficit-RME/HPI General Chief Complaint: Seizure Stated Complaint: STROKE ALERT Time Seen by Provider: 02/24/25 10:27 Arrival date/time: 02/24/25 10:24 RME / HPI RME / HPI Narrative: 44 year old male with history of hypertension and recent admission 02/19- 02/21/2025 for stroke work-up and diagnosed with severe left sided Pugh's Palsy, presents to the ED BIBA from [facility] for evaluation of left sided weakness. Per medics report, patient sustained a fall while in his cell and reportedly cell mate and officers had witnessed two seizures, lasting 15-20 seconds each. Per medics, on scene patients blood pressure 220/174 and prehospital BS 115. While in the ED, patient doesn't recall what occurred and stated I think I had a seizure . Patient while in CT began complaining of neck pain. Per discharge summary from recent admission 02/21/2025, patient was discharged home with Prednisone with a taper and acyclovir for additional 9 days. Related Data Previous Rx's ?Medication ?Instructions ?Recorded atorvastatin 40 mg tablet 40 mg PO HS 30 days #30 tabs 03/17/24 lisinopril 20 mg tablet 20 mg PO QDAY 30 days #30 ta bs 03/17/24 acetaminophen 325 mg tablet 650 mg (2 x 325 mg) PO Q6H PRN 02/21/25 (Tylenol) Fever >100.3 or pain 1-3 #30 tabs acyclovir 800 mg tablet 800 mg PO TID 9 days #27 tab s 02/21/25 artificial 1 drp Left eye PRN PRN To Garry ep 02/21/25 tears([id number]) Eyes Moist #1 mL 0.1 %-0.3 %-0.2 % eye drops pantoprazole 40 mg tablet,delayed 40 mg PO QDAY #30 ta bs 02/21/25 release prednisone 10 mg tablet See Taper PO QDAY #33 tabs 0 02/21/25 Allergies Allergy/AdvReac Type Severity Reaction Status Date / Time No Known Allergies Allergy Verified 05/31/23 03:15 Review of Systems Review of Systems Systems Reviewed: All systems reviewed, normal except as documented Narrative Review of Systems: Gen: No fever, no chills, no weight loss EYES: No discharge, no visual changes, no pain HEENT: No ear pain, no congestion, no sore throat PULM: No shortness of breath, no cough, no congestion CV: No chest pain, no dyspnea on exertion, no palpitations GI: No nausea, no vomiting, no diarrhea, no pain, no constipation : No frequency, no urgency, no dysuria Musc/skel: + neck pain, No joint pain, no back pain Skin: No rash Psyc: No hallucinations, no depression Heme/Lymph: No easy bleeding or bruising tendencies Neuro: No weakness, no headache, + seizure per medics Past Medical History Past Medical History CARDIAC: Positive Cardiac Disorders and Hypertension MUSCULOSKELETAL: Positive Fractures PSYCHO/SOCIAL: Positive Recreational Drug Use, Depression and Anxiety Family History FAMILY HISTORY: Positive Family Cardiac Disorders Social History SMOKING STATUS: Unknown if ever smoked ED Exam Narrative Physical exam: GENERAL APPEARANCE: alert and oriented x 4, well-developed, well-nourished, no acute distress HEENT: Normocephalic, atraumatic; pupils equal, round, reactive to light; EOMI; mucous membranes pink, moist; oropharynx clear NECK: Supple LUNGS: CTABL; no wheezes, no rales, no rhonchi HEART: Regular rate, regular rhythm; normal S1, S2; no murmurs ABDOMEN: non distended; normal BS; soft, no tenderness, no guarding, no rebound; no masses, no organomegaly, no hernia BACK: no CVA tenderness EXTREMITIES: atraumatic; no edema NEUROLOGIC: awake; alert and oriented x4; left facial droop, slurred speech PSYCHIATRIC: appropriate mood and affect SKIN: warm, mildly diaphoretic, normal color; no rashes Course Quality Measures Suspected type of Stroke: Non Acute Last known well (date): 02/24/25 Last known well (time): 09:00 Tenecteplase given: Reason(s) TPA not given: Stroke severity too mild (non-disabling) not given stroke Orders Category Date Time Status Bedside Blood Glucose NOW Care 02/24/25 10:26 Active Pharmaceutical Representative NOW Care 02/24/25 10:26 Active Continuous Pulse Oximetry NOW Care 02/24/25 10:26 Completed EKG (ED ONLY) *Do not use* NOW Care 02/24/25 10:26 Completed In and Out Catheter NEEDED Care 02/24/25 10:26 Active Insert IV NOW Care 02/24/25 10:26 Active NIH Stroke Scale now Care 02/24/25 10:26 Active NPO NOW Care 02/24/25 10:26 Active Nurse Swallow Screen x1 Care 02/24/25 10:26 Active Consult to Neurology / Tele-Neurology Routine Cons 02/24/25 10:[address] angio stroke protocol Stat Exams 02/24/25 10:[address] cervical spine wo con Stat Exams 02/24/25 10:[address] stroke protocol Stat Exams 02/24/25 10:26 Completed EKG (ED Only) Stat Exams 02/24/25 10:26 Draft B-Type Natriuretic Peptide Stat Lab 02/24/25 10:55 Completed CBC Stat Lab 02/24/25 10:55 Completed CK [Creatine Kinase] Stat Lab 02/24/25 12:42 Completed Comprehensive Metabolic Panel Stat Lab 02/24/25 10:55 Completed Drug Screen,Urine Stat Lab 02/24/25 10:26 Ordered Lactate (Lactic Acid) Stat Lab 02/24/25 12:42 Results Magnesium Stat Lab 02/24/25 10:55 Completed Partial Thromboplastin Time Stat Lab 02/24/25 12:42 Completed Prothrombin Time with INR Stat Lab 02/24/25 12:42 Completed Troponin I Stat Lab 02/24/25 10:55 Completed Urinalysis Stat Lab 02/24/25 10:26 Ordered Urine Culture Stat Lab 02/24/25 10:26 Ordered Aspirin Chew Med 02/24/25 11:14 Discontinued 324 mg PO X1 ONE HYDROcodone*/APAP 5/325 [Coleman 5/325] Med 02/24/25 11:34 Discontinued 1 tab PO X1 ONE Ondansetron Inj [Zofran Inj] Med 02/24/25 10:26 Active 4 mg IV Q4HR PRN Sodium Chloride 0.9% 1000 ml [Ns] 1,000 ml Med 02/24/25 13:00 Discontinued IV 999 mls/hr hydrALAZINE INJ [Apresoline Inj] Med 02/24/25 11:51 Discontinued 10 mg IV X1 ONE levETIRAcetam INJ [Keppra Inj] Med 02/24/25 11:14 Discontinued 2,000 mg IVP X1 ONE EEG Awake and Drowsy Stat RT 02/24/25 11:16 Ordered Oxygen Delivery NOW RT 02/24/25 10:26 Active Vital Signs Vital signs: Vital Signs Pulse Rate 66 02/24/25 11:22 Neuro Symptoms / Deficit MDM Narrative MDM Narrative:: Janet Felix am scribing for and in the presence of Dr. Escalante Patient data External records reviewed:: [facility] previous records (Reviewed patient discharge summary from recent admission 02/21/2025) and EMS form Clinical information provided by:: patient and EMS Social determinants that could affect healthcare access:: housing (patient currently incarcerated) Patient has the following chronic illnesses:: hypertension, severe left-sided Pugh's Palsy How is presenting disease/condition affected by chronic disease/condition?: exacerbated by Evaluation data The following diagnostics were reviewed and interpreted by me:: lab results, radiology exam(s) and EKG tracing(s) (EKG#1: EKG at 1134 hours.Interpreted by me: sinus rhythm, rate 63, no acute ischemic changes) Lab and/or radiology exams considered but not ordered:: none Interpretation Summary: Ordering Physician: Darlene Escalante MD Date of Service: 02/24/25 Procedure(s): CT cervical spine wo con Accession Number(s): [id number] cc: Jose Nettles MD; Darlene Escalante MD~ Examination: CT cervical spine without contrast 2-D sagittal reconstructions 2-D coronal reconstructions 3-D reconstructions. Exam date and time:02/24/2025, 10:45 AM CTDI:vol (mGy) 15.7 DLP: (mGycm) 358 INDICATION: Trauma Technique: Multiple 2 mm axial sections of the cervical spine have been obtained. The coronal and sagittal reconstructions have been obtained. 3-D reconstructions have been obtained. Low dose protocols were performed. One or more of the following dose reduction techniques were used; automated exposure control, adjustment of the mA and/or KV according to patient size, use of iterative reconstruction technique. Findings: Axial sections demonstrate intact base of the skull. C1 exhibit satisfactory relationship to the odontoid. No acute cervical vertebral body fracture seen. Alignment posterior spinous processes satisfactory. Mild multilevel degenerative changes. Impression: No acute cervical fracture. Dictated By: Jose Nettles MD Signed By: <Electronically signed by Jose Nettles MD in OV> 02/24/25 1106 Ordering Physician: Darlene Escalante MD Date of Service: 02/24/25 Procedure(s): CT stroke protocol Accession Number(s): [id number] cc: Jose Nettles MD; Darlene Escalante MD~ Examination: CT brain head without contrast. 2-D sagittal coronal reconstructions Date and time of exam:02/24/2025, 10:33 AM INDICATION: Seizure, history of cerebral palsy. COMPARISON: 02/19/2025 CTDI: vol (mGy):84.4 DLP: (mGycm):1838 Technique: Multiple CT axial sections of the brain have been obtained, 5 mm slice thickness. Contrast has not been administered. 2-D sagittal, coronal reconstructions have been obtained Low dose protocols were performed. One or more of the following dose reduction techniques were used; automated exposure control, adjustment of the mA and/or KV according to patient size, use of iterative reconstruction technique. Findings: No significant ventricular enlargement. Intra-axial or extra-axial hemorrhage density is not seen. No mass effect or midline shift Basal cisterns are not remarkable. Fourth ventricle is midline. Cranial vault intact. Impression: Negative for acute hemorrhage, mass effect or midline shift Dictated By: Jose Nettles MD Signed By: <Electronically signed by Jose Nettles MD in OV> 02/24/25 1058 Ordering Physician: Darlene Escalante MD Date of Service: 02/24/25 Procedure(s): CT angio stroke protocol Accession Number(s): [id number] cc: Jose Nettles MD; Darlene Escalante MD~ Examination: CTA carotids with intravenous contrast CTA brain, head with intravenous contrast. 2-D sagittal, coronal reconstructions. 3-D reconstructions. Exam date and time: February 24, 2025, 10:54 AM COMPARISON: 02/19/2025 Indications: Stroke alert, onset focal neurologic deficit left-sided body weakness today CTDI: vol (mGy) 30.5 DLP: (mGycm) 500 Technique: Multiple CTA axial brain, head carotid images post intravenous contrast injection 75 cc, [id number]. 2-D sagittal, coronal reconstructions. 3-D reconstructions, 3-D post processing including vascular maximum intensity projection images. Low dose protocols were performed. One or more of the following dose reduction techniques were used; automated exposure control, adjustment of the mA and/or KV according to patient size, use of iterative reconstruction technique. Findings: No significant common carotid carotid bifurcation or internal carotid artery stenoses Codominant vertebral arteries with no critical stenoses No cerebral large vessel arterial occlusions thrombus dissection or cerebral aneurysm Impression: No significant neck arterial stenoses No cerebral large vessel arterial occlusions or thrombus Dictated By: Jose Nettles MD Signed By: <Electronically signed by Jose Nettles MD in OV> 02/24/25 1218 Medications / Prescriptions Medications or Prescriptions considered but not ordered:: none Medication administrations:: Medication Administration History Acetaminophen (Acetaminophen 325 Mg Tablet) 650 mg PO Q6H PRN PRN Reason: PAIN OR FEVER > 101 Stop: 03/26/25 13:30 Acyclovir (Acyclovir 800 Mg Tablet) 800 mg PO TID NUBIA Stop: 03/03/25 14:29 Atorvastatin Calcium (Atorvastatin Calcium 20 Mg Tablet) 40 mg PO HS NUBIA Stop: 03/26/25 20:59 Heparin Sodium (Porcine) (Heparin Sod Inj 5000 Unit/Ml Vial) 5,000 unit SC Q12H NUBIA Stop: 03/10/25 13:44 Hydralazine HCl (Hydralazine Inj 20 Mg/Ml Vial) 10 mg IV Q6H PRN PRN Reason: hypertension Stop: 03/26/25 13:39 Lactated Ringer's (Lactated Ringers) 1,000 mls @ 100 mls/hr IV .Q10H ONE Stop: 02/25/25 00:53 Levetiracetam (Levetiracetam Inj 100 Mg/Ml Vial 5ml) 1,000 mg IVP Q12HR NUBIA Stop: 03/26/25 20:59 Lisinopril (Lisinopril 20 Mg Tablet) 20 mg PO QDAY [facility] Stop: 03/27/25 08:59 Lorazepam (Lorazepam 2 Mg/Ml Vial) 2 mg IVP Q15MIN PRN PRN Reason: Seizure Activity Ondansetron HCl (Ondansetron Inj 2 Mg/Ml Inj 2 Ml) 4 mg IV Q4HR PRN; Protocol PRN Reason: NAUSEA OR VOMITING Stop: 03/26/25 10:25 Prednisone (Prednisone 20 Mg Tablet) 60 mg PO QDAY [facility] Stop: 03/03/25 14:24 Discontinued Medications Hydrocodone Bitart/Acetaminophen (Hydrocodone/Apap 5/325 Tablet) 1 tab PO X1 ONE Stop: 02/24/25 11:35 Last Admin: 02/24/25 11:41 Dose: 1 tab Documented By: BENOIT Aspirin (Aspirin 81 Mg Chew) 324 mg PO X1 ONE Stop: 02/24/25 11:15 Last Admin: 02/24/25 11:41 Dose: 324 mg Documented By: BENOIT Hydralazine HCl (Hydralazine Inj 20 Mg/Ml Vial) 10 mg IV X1 ONE Stop: 02/24/25 11:52 Last Admin: 02/24/25 12:19 Dose: 10 mg Documented By: BENOIT Sodium Chloride (Ns) 1,000 mls @ 999 mls/hr IV .Q1H1M ONE Stop: 02/24/25 14:00 Last Admin: 02/24/25 13:17 Dose: 999 mls/hr Documented By: BENOIT Levetiracetam (Levetiracetam Inj 100 Mg/Ml Vial 5ml) 2,000 mg IVP X1 ONE Stop: 02/24/25 11:15 Last Admin: 02/24/25 11:43 Dose: 2,000 mg Documented By: see above Consultations Consultation(s) initiated? (list below): Yes Consultation #1 (Physician, Specialty, Details): 1019: I spoke with teleneurologis Dr. Beltran. Reports patient is not a tpa candidate. Recommended giving patient Keppra and Aspirin. Diagnosis Neuro Differential Diagnosis: convulsions, subarachnoid hemorrhage, cerebrovascular accident, transient cerebral ischemia and other (seizure, Pugh's Palsy ) Most likely diagnosis given after review of the tests above:: left hemiparesis, witnessed seizure-like activity Admission Indicated Admission indicated?: indicated Admission Request Was there a request for admission?: Yes Admission Attestation Admission request attestation: Discussed case with [] from Hospitalist service regarding admission. Discussed patients ED course, exam findings, labs, and radiology results. The Hospitalist [agrees,declines] to accept the patient for admission. Disposition Plan Disposition Plan: Admit Critical Care Time Critical Care Time Critical Care Time: Yes Total Critical Care Time (min.): 35 Attestation: The high probability of sudden, clinically significant deterioration in the patient's condition required the highest level of my preparedness to intervene urgently. The services I provided to this patient were to treat and/or prevent clinically significant deterioration. Services included the following: chart data review, reviewing nursing notes and/or old charts, documentation time, [place] consultant collaboration regarding findings and treatment options, medication orders and management, direct patient care, vital sign assessments and ordering, interpreting and reviewing diagnostic studies and lab tests. Aggregate critical care time includes only time during which I was engaged in work directly related to the patient's care, as described above, whether at bedside or elsewhere in the Emergency Department. It did not include time spent performing other reported procedures or the services of residents, students, nurses or physician assistants. Discharge Plan Plan Patient Disposition: Admit Acute Care w/in Hospital Problem List Clinical Impression: Witnessed seizure-like activity, Left hemiparesis
--- NOTE | 2025-02-24 10:31 | XR_ITS ---
Examination: CT cervical spine without contrast 2-D sagittal reconstructions 2-D coronal reconstructions 3-D reconstructions. Exam date and time:02/24/2025, 10:45 AM CTDI:vol (mGy) 15.7 DLP: (mGycm) 358 INDICATION: Trauma Technique: Multiple 2 mm axial sections of the cervical spine have been obtained. The coronal and sagittal reconstructions have been obtained. 3-D reconstructions have been obtained. Low dose protocols were performed. One or more of the following dose reduction techniques were used; automated exposure control, adjustment of the mA and/or KV according to patient size, use of iterative reconstruction technique. Findings: Axial sections demonstrate intact base of the skull. C1 exhibit satisfactory relationship to the odontoid. No acute cervical vertebral body fracture seen. Alignment posterior spinous processes satisfactory. Mild multilevel degenerative changes. Impression: No acute cervical fracture.
[2025-02-24 11:12] LABS: Basophils # (Auto) 0.1 Thou/mm3 (0.0-0.2); Basophils % (Auto) 1 % (0-2.5); Eosinophils # (Auto) 0.2 Thou/mm3 (0.0-0.5); Eosinophils % (Auto) 3 % (0-10); Hematocrit 46.8 % (41.0-53.0); Hemoglobin 16.9 g/dL (13.5-16.0); Immature Granulocytes % (Auto) 1 % (0-0); Immature Granulocytes Auto 0.05 Thou/mm3 (0.00-0.00); Lymphocytes # (Auto) 2.3 Thou/mm3 (1.0-4.8); Lymphocytes % (Auto) 33 % (10-50); Mean Corpuscular HGB Conc 36.1 g/dl (31.0-37.0); Mean Corpuscular Hemoglobin 29.2 pg (25.0-35.0); Mean Corpuscular Volume 81 fL (80-100); Monocytes # (Auto) 0.5 Thou/mm3 (0.0-0.8); Monocytes % (Auto) 7 % (0-12); Neutrophils # (Auto) 3.9 Thou/mm3 (1.8-7.7); Neutrophils % (Auto) 56 % (37-80); Nucleated Red Blood Cell % 0 /100 WBC (0); Platelet Count 224 Thou/mm3 (140-440); RDW Standard Deviation 34.8 fL (35.1-43.9); Red Blood Count 5.79 Miln/mm3 (4.50-5.90); White Blood Count 6.9 Thou/mm3 (3.8-10.6)
--- NOTE | 2025-02-24 11:15 | PD.TNEURO ---
Tele Neuro Consultation Consultation Date 02/24/25 Consultation Narrative This is a 40 y/o man in his senior care cell watching TV when a cellmate watched him go down. He had 2 witnessed seizures lasting 15 to 20 seconds. He recovered consciousness and then complained of neck pain radiating down to lower extremities. He denies having ever had a seizure before. He denies drug or alcohol use before this occurred today. He has a headache now and posterior neck pain. He presented to this hospital February 19 with headache x 3 days, and left sided weakness without seizure like activity. He underwent MRI brain, vascular imaging, and TTE which showed no stroke, no acute abnormality in the brain, no significant large vessel disease, and no intracardiac shunt or thrombus. 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 At admission he had a Hgb of 18 and a smear was sent to pathology which showed polycythemia. He presented in March of 2024 with headache, blurred vision, and flaccid hemiplegia, that time also from alf. Hgb was 17.8. MRI brain was performed and showed no stroke or other acute abnormality. #1 Recurrent acute left hemiparesis #2 Witnessed convulsions with loss of consciousness #3 History of migraine This is the patient's third presentation to this hospital with headache and left hemiparesis. He has a history of migraine. According to the documentation, the 3 episodes have not been exactly stereotyped. I doubt that MRI will yield any new information, however, both prior MRIs were performed WITHOUT gadolinium. Given that there have been 3 spells, one now associated with convulsions, he needs to undergo contrasted MR imaging of the brain. In addition, he will need a routine EEG. I would also test for familial hemiplegic migraine genetic variants. These include: [id number], AT, SCN1A, PRRT2. For now, please give 300 mg pr aspirin. Administer 2 g IV levetiracetam. NPO pending swallow study. Avoid fluroquinolones and typical antipsychotics. Treat headache with an IV analgesic such as ketorolac and a sedating antiemetic. Add lactate and CK on to the labs obtained on arrival.
[2025-02-24 11:30] LABS: Alanine Aminotransferase 27 U/L (10-49); Albumin, Serum 4.6 gm/dL (3.5-5.0); Albumin/Globulin Ratio 1.6 (1.2-2.2); Alkaline Phosphatase 81 U/L (46-116); Anion Gap 9 (7-16); Aspartate Amino Transferase 26 U/L (0-34); BUN/Creatinine Ratio 11 Ratio (12-20); Bilirubin,Total 0.7 mg/dL (0.3-1.2); Blood Urea Nitrogen 9 mg/dL (9-23); Calcium 9.8 mg/dL (8.3-10.6); Calcium (Corrected) 9.8 mg/dL (8.5-10.1); Carbon Dioxide 27.1 mMol/L (20.0-31.0); Chloride 105 mMol/L (98-107); Creatinine (Component) 0.8 mg/dL (0.6-1.3); Estimated Creatinine Clearance 106.9 mL/min (>60); Globulin 2.8 gm/dL (2.3-3.5); Glucose 113 mg/dL (74-106); Osmolality,Calculated 280 (275-295); Potassium 3.7 mMol/L (3.4-5.1); Sodium 141 mMol/L (136-145); Total Protein 7.4 gm/dL (5.7-8.2); Troponin I < 0.020 ng/mL (0.0-0.045); eGFR > 60 See Note
[2025-02-24] MEDS: ASPIRIN 81 MG CHEW 324 MG PO (11:41)
[2025-02-24] MEDS: HYDROcodone/APAP 5/325 TABLET 1 TAB PO ×2 (11:41→19:50)
[2025-02-24] MEDS: levETIRAcetam INJ 100 MG/ML VIAL 5ML 2000 MG IVP (11:43)
[2025-02-24 12:03] LABS: B-Type Natriuretic Peptide < 20 pg/mL (0-100)
--- NOTE | 2025-02-24 12:03 | PRELIM_ITS ---
CT angiogram of the head and neck with intravenous contrast (axial sections with sagittal,coronal,MIP and 3D reformats) February 24, 2025 1054 hours Clinical History: Focal neuro deficit, stroke suspected Comparison: No prior study is available for comparison at the time of interpretation Findings: Head: The internal carotid, middle and anterior cerebral arteries are patent bilaterally. The intracranial vertebral arteries are patent. The vertebrobasilar junction, basilar and posterior cerebral arteries are patent. No evidence of large vessel occlusion, critical stenosis or aneurysm. Neck: The aortic arch to the extent visualized as well as the origins of the right brachiocephalic, left common carotid, and left subclavian arteries are patent. The common carotid arteries, carotid bulbs, and internal and external carotid arteries are patent. The origins of the vertebral arteries are unremarkable. The vertebral arteries are codominant. No evidence of vascular occlusion, critical stenosis, dissection or aneurysm. The soft tissues of the neck are unremarkable. The osseous structures are unremarkable. Impression: Head: No evidence of large vessel occlusion, critical stenosis or aneurysm. Neck: No evidence of vascular occlusion, critical stenosis, dissection or aneurysm. Report Electronically Signed By: Leonid Vega 02/24/2025 12:02:40 PM [EST]
--- NOTE | 2025-02-24 12:04 | PC.NURSE ---
patient is feeling better, her swelling on her eyes is going down, her rashs has improved, her mom is at bedisde, will have a monitor on her to observe her.
[2025-02-24] MEDS: hydrALAZINE INJ 20 MG/ML VIAL 10 MG IV (12:19)
[2025-02-24 13:06] LABS: Creatine Kinase 53 U/L (34-171)
[2025-02-24] MEDS: SODIUM CHLORIDE 0.9% 1000 ML 1,000 ML 999 ML IV (13:17)
[2025-02-24 13:19] LABS: Partial Thromboplastin Time 25.9 Seconds (22.0-36.0); Prothrombin Time 11.3 Seconds (9.0-12.2)
[2025-02-24 14:05] LABS: Lactate (Lactic Acid) 2.7 mMol/L (0.4-2.0)
--- NOTE | 2025-02-24 14:38 | ESHP_ITS ---
Documentation for date of: 02/24/25 HPI History of Present Illness History of present illness: Patient is a 46-year-old male with past medical history of hypertension, history of Pugh's palsy who was recently discharged from hospital with prednisone and Aciclovir, l, [facility] of witnessed seizure. Apparently patient was watching TV when a cellmate saw him seizing. Episode lasted about 15 to 20 seconds, and he fell from the chair to the floor. He recovered consciousness right after however does not recall prior events. He was complaining of headache and neck pain radiating down to lower extremity. Upon my examination patient was hemodynamically stable, however was complaining of severe headache on the left side, denied any nausea, vomiting, shortness of breath, chest pain, or any other associated symptoms. He was complaining also left facial numbness, and physical exam was positive for left facial droop, patient is unable to close left eye. On presentation patient was hypertensive with blood pressure 192/131, the rest of the vitals were within normal limits. Labs were significant for polycythemia with hemoglobin of 16.9, CMP was unremarkable, lactic acid was elevated 3.0, CPK was normal. CT head did not reveal any mass, hemorrhage, or midline shift. Cervical spine CT was negative for any fracture, CTA was negative for any large vessel occlusion. Teleneuro was consulted, patient was given 2 g of Keppra, Ativan, pain was addressed with [place]. Neurology recommended to admit the patient for inpatient EEG and MRI with contrast to address ongoing new onset seizure. PMH; as above Social history: inmate a [facility] custodial, used to use cocaine frequently, smoking marijuana and drinking alcohol every day before being in custodial. Medications: lisinopril, acyclovir, prednisone, does not remember the rest of meds Review of Systems Review of Systems Systems Reviewed: All systems reviewed, normal except as documented Exam Vital Signs Temp Pulse Resp BP Pulse Ox O2 Del Method 97.9 F 99 14 154/114 H 95 Room Air 02/24/25 13:52 02/24/25 14:02 02/24/25 14:02 02/24/25 13:52 02/24/25 14:02 02/24/25 13:52 Narrative Exam GENERAL: no acute distress, AAO x3, well nourished. HEENT: Head AT/ NC. Mucous membranes moist. NECK: Supple, no lymphadenopathy, no carotid bruits. CARDIOVASCULAR: RRR. Normal S1/S2, No m/r/g. No pitting edema of bilateral LEs. RESPIRATORY: CTAB. No wheezing, rhonchi, crackles. GASTROINTESTINAL: Abdomen soft, non tender no palpable masses. Bowel sounds present in all 4 quadrants. MUSCULOSKELETAL:? No cyanosis or edema, no visible joint swelling. NEUROLOGICAL: Facial nerve examination-inadequate left eye closure, flattened nasolabial fold on the left, loss of wrinkling of the forehead on the left. Normal reflexes. PSYCHIATRIC: Awake and alert, not agitated, normal mood and affect. INTEGUMENTARY: No obvious rashes, no jaundice, normal turgor. Results: Labs 02/26/25 07:41 02/26/25 07:41 Labs: Short CBC 02/24/25 Range/Units 10:55 WBC 6.9 D (3.8-10.6) Thou/mm3 Hgb 16.9 H (13.5-16.0) g/dL Hct 46.8 (41.0-53.0) % Plt Count 224 D (140-440) Thou/mm3 BMP 02/24/25 10:55 Sodium 141 Potassium 3.7 Chloride 105 Carbon Dioxide 27.1 BUN 9 Creatinine 0.8 Glucose 113 H Calcium 9.8 Cardiac Enzymes 02/24/25 02/24/25 Range/Units 10:55 12:42 Total Creatine Kinase 53 (34-171) U/L Troponin I < 0.020 (0.0-0.045) ng/mL Liver Function 02/24/25 Range/Units 10:55 Total Bilirubin 0.7 (0.3-1.2) mg/dL AST 26 (0-34) U/L ALT 27 (10-49) U/L Alkaline Phosphatase 81 (46-116) U/L Albumin 4.6 (3.5-5.0) gm/dL Quality Measures Quality Measures stroke Suspected type of Stroke: Unknown at this time Tenecteplase given: Reason(s) Tenecteplase not given: Siezure at onset with post-ictal neuro impairment not given Rehab services: Speech Language Pathology eval ordered VTE Prophylaxis: pharmaceutical Antithrombotic by day 2:: ordered Statin ordered: <75 y/o high intensity dose Anticoagulation ordered for A-fib or flutter (current or hx): not indicated Medications Home Medications and Allergies Allergies Allergy/AdvReac Type Severity Reaction Status Date / Time No Known Allergies Allergy Verified 05/31/23 03:15 Visit Medications Acetaminophen (Acetaminophen 325 Mg Tablet) 650 mg PO Q6H PRN PRN Reason: PAIN OR FEVER > 101 Stop: 03/26/25 13:30 Acyclovir (Acyclovir 800 Mg Tablet) 800 mg PO TID NUBIA Stop: 03/03/25 14:29 Atorvastatin Calcium (Atorvastatin Calcium 20 Mg Tablet) 40 mg PO HS NUBIA Stop: 03/26/25 20:59 Heparin Sodium (Porcine) (Heparin Sod Inj 5000 Unit/Ml Vial) 5,000 unit SC Q12H NUBIA Stop: 03/10/25 13:44 Hydralazine HCl (Hydralazine Inj 20 Mg/Ml Vial) 10 mg IV Q6H PRN PRN Reason: hypertension Stop: 03/26/25 13:39 Levetiracetam (Levetiracetam Inj 100 Mg/Ml Vial 5ml) 1,000 mg IVP Q12HR NUBIA Stop: 03/26/25 20:59 Lisinopril (Lisinopril 20 Mg Tablet) 20 mg PO QDAY NUBIA Stop: 03/27/25 08:59 Lorazepam (Lorazepam 2 Mg/Ml Vial) 2 mg IVP Q15MIN PRN PRN Reason: Seizure Activity Ondansetron HCl (Ondansetron Inj 2 Mg/Ml Inj 2 Ml) 4 mg IV Q4HR PRN; Protocol PRN Reason: NAUSEA OR VOMITING Stop: 03/26/25 10:25 Prednisone (Prednisone 20 Mg Tablet) 60 mg PO QDAY NUBIA Stop: 03/03/25 14:24 Discontinued Medications Hydrocodone Bitart/Acetaminophen (Hydrocodone/Apap 5/325 Tablet) 1 tab PO X1 ONE Stop: 02/24/25 11:35 Last Admin: 02/24/25 11:41 Dose: 1 tab Aspirin (Aspirin 81 Mg Chew) 324 mg PO X1 ONE Stop: 02/24/25 11:15 Last Admin: 02/24/25 11:41 Dose: 324 mg Hydralazine HCl (Hydralazine Inj 20 Mg/Ml Vial) 10 mg IV X1 ONE Stop: 02/24/25 11:52 Last Admin: 02/24/25 12:19 Dose: 10 mg Sodium Chloride (Ns) 1,000 mls @ 999 mls/hr IV .Q1H1M ONE Stop: 02/24/25 14:00 Last Admin: 02/24/25 13:17 Dose: 999 mls/hr Levetiracetam (Levetiracetam Inj 100 Mg/Ml Vial 5ml) 2,000 mg IVP X1 ONE Stop: 02/24/25 11:15 Last Admin: 02/24/25 11:43 Dose: 2,000 mg Assessment & Plan Plan Mr. Mcallister is a 46-year-old male with a previous medical history of hypertension, who was brought to the ED from [facility] was admitted for custodial due to new onset seizure. #New onset seizure Patient came in from custodial after witnessed episode of seizure which lasted about 15 to 20 minutes, patient regained consciousness right after seizure, however was not recalling any prior events. CT head without contrast was negative for mass, hemorrhage, or midline shift CTA was negative for any large vessel occlusion Cervical/spine CT was negative for any acute fracture. In ED patient received 2 g of loading dose of Keppra, Ativan, atorvastatin teleneuro was consulted CPK is negative, lactic acid was slightly elevated most likely secondary due to seizure, - Trend lactic acid - EEG was ordered - MRI with contrast - Neurology Dr. Sandy is on board, recommendations appreciated - Control blood pressure with her lisinopril and as needed hydralazine - Keppra thousand twice daily - Ativan as needed for seizure activity - seizure precaution - neurocheck q4h #History of Pugh's palsy on left side Patient was recently discharged from the hospital - Continue Aciclovir 800 3 times daily - Continue prednisone 60 mg for 3 more days, after which we will start tapering down - Artificial tears for eye lubrication #Erythrocytosis - Hgb 18.0, all other labs are within normal limits - DDx would include polycythemia due to dehydration, hypoxemia, primary bone marrow neoplasm, if polycythemia persists more than 6 months and all reactive causes are ruled out, hematology follow-up outpatient is recommended. #Headache Ct negative for fracture, Plan: - pain control as needed #Hypertension -resumed home lisinopril -hydralazine PRN Disposition: Telemetry DVT prophylaxis: Heparin GI prophylaxis: PPI Diet: N.p.o. Lines: PIV CODE STATUS:Full code Patient care was discussed with attending physician Dr. Sue Locke MD PGY-2 Attending Provider Attestation/Addendum 46-year-old male with multiple comorbidities including hypertension and recent diagnosis of left Pugh's palsy on prednisone and acyclovir who was recently discharged from our hospital on 02/22/2024 who presented with episode of seizures. Per documentation and report, patient was watching TV when his cellmate noticed him seizing lasted about 15 to 20 seconds however no tongue biting, urinary incontinence. As for characteristic of the seizure, unable to give details as it was focal for generalized tonic-clonic. In the ER, patient received Ativan and Keppra 2000 mg loading dose. Workup including CT, CTA head and neck and CT cervical spine with no acute intracranial abnormality. Teleneuro was consulted and recommended admission for EEG and an MRI. As of now, plan to continue Keppra and admit the patient to telemetry with seizure precaution. As for left Pugh's palsy, patient does have significant left-sided facial droop and facial weakness for which plan to continue acyclovir 800 mg 3 times daily and prednisone 60 mg. Of note, in regards to etiology of seizures unknown etiology at this point and will reach out to neurology regarding possible causes including acyclovir as there is an reports of acyclovir causing seizures.I reviewed above note and agree with findings and plans. I have also personally examined the patient with medicine team and went over assessment and plan with medical team including design engineering intern and resident physician.
[2025-02-24 15:04] LABS: Collection Type, Urine Clean Catch; Squamous Epithelial Cell,Urine 0 /hpf (0-5); WBC,Urine 0 /hpf (0-5)
[2025-02-24] MEDS: ACETAMINOPHEN 325 MG TABLET 650 MG PO ×2 (15:11→23:41)
[2025-02-24] MEDS: ACYCLOVIR 800 MG TABLET PO ×2 (15:14→21:02)
[2025-02-24] MEDS: HEPARIN SOD INJ 5000 UNIT/ML VIAL SC (15:14)
[2025-02-24 15:15] LABS: Bilirubin,Urine Negative (Negative); Blood,Urine Negative (Negative); Clarity,Urine Clear (Clear/Hazy); Color,Urine Colorless (Lt Yel-Yel); Glucose, Urine Negative (Negative); Ketones,Urine Negative (Negative); Leukocyte Esterase,Urine Negative (Negative); Nitrite,Urine Negative (Negative); PH,Urine 7.5 (5.0-7.0); Protein,Urine Negative (Neg - Trace); RBC,Urine 1 /hpf (0-3); Specific Gravity,Urine 1.027 (1.001-1.035); Urobilinogen,Urine Negative mg/dL (0.0-1.0)
[2025-02-24] MEDS: RINGERS LACTATED 1000 ML 1,000 ML 100 ML IV (15:21)
[2025-02-24 15:22] LABS: Amphetamine/Methamp Scrn,U Negative (Negative); Barbiturate Screen,Urine Negative (Negative); Benzodiazepines Screen,Urine Negative (Negative); Benzoylecgonine Screen, Ur Negative (Negative); Fentanyl Screen,Urine Negative (Negative); Opiate Screen,Urine Negative (Negative); THC Screen,Urine Negative (Negative)
[2025-02-24 15:22] LABS: Lactate (Lactic Acid) 2.4 mMol/L (0.4-2.0)
[2025-02-24] MEDS: HYDROmorphone INJ 2 MG/ML VIAL 0.25 MG IVP (15:40)
[2025-02-24 15:45] LABS: Reflex Lactate? Y
[2025-02-24 17:07] LABS: Reflex Lactate? Y
[2025-02-24] MEDS: Artificial Tears 225 DROP/15 ML BTL LEFT EYE (17:48)
[2025-02-24 18:22] LABS: Reflex Lactate? Y
[2025-02-24 18:46] LABS: Lactic Acid, 3 HR 1.7 mMol/L (0.4-2.0)
--- NOTE | 2025-02-24 19:38 | PC.NURSE ---
DR. JIMENEZ IN THE UNIT, NOTIFIED OF PT'S HEADACHE AND REQUEST FOR DIET. WENT TO EVALUATE PT.
[2025-02-24] MEDS: levETIRAcetam INJ 100 MG/ML VIAL 5ML 1000 MG IVP (21:02)
[2025-02-24] MEDS: ATORVASTATIN CALCIUM 20 MG TABLET 40 MG PO (21:02)
--- NOTE | 2025-02-24 22:13 | PD.VCONSULT1 ---
Telemedicine visit statement This visit was conducted with the use of interactive audio and video telecommunications system that permits real time communication between the patient and the provider. Patient's verbal consent for virtual visit was obtained on 02/24/25 at 2213. Past Medical History Past Medical History CARDIAC: Positive Cardiac Disorders and Hypertension MUSCULOSKELETAL: Positive Fractures PSYCHO/SOCIAL: Positive Recreational Drug Use, Depression and Anxiety Family History FAMILY HISTORY: Positive Family Cardiac Disorders Social History SMOKING STATUS: Unknown if ever smoked TeleMedicine ROS Pertinent Review of Systems Systems Reviewed: All systems reviewed, normal except as documented Meds Home Medications and Allergies Allergies Allergy/AdvReac Type Severity Reaction Status Date / Time No Known Allergies Allergy Verified 05/31/23 03:15 Virtual exam Vital Signs Temp Pulse Resp BP Pulse Ox O2 Del Method 97.2 F 85 21 H 145/104 H 97 Room Air 02/24/25 20:00 02/24/25 20:00 02/24/25 20:00 02/24/25 20:00 02/24/25 20:00 02/24/25 20:00 Results Labs 02/25/25 05:18 02/25/25 05:18 Labs: Short CBC 02/24/25 Range/Units 10:55 WBC 6.9 D (3.8-10.6) Thou/mm3 Hgb 16.9 H (13.5-16.0) g/dL Hct 46.8 (41.0-53.0) % Plt Count 224 D (140-440) Thou/mm3 BMP 02/24/25 10:55 Sodium 141 Potassium 3.7 Chloride 105 Carbon Dioxide 27.1 BUN 9 Creatinine 0.8 Glucose 113 H Calcium 9.8 Cardiac Enzymes 02/24/25 02/24/25 Range/Units 10:55 12:42 Total Creatine Kinase 53 (34-171) U/L Troponin I < 0.020 (0.0-0.045) ng/mL Liver Function 02/24/25 Range/Units 10:55 Total Bilirubin 0.7 (0.3-1.2) mg/dL AST 26 (0-34) U/L ALT 27 (10-49) U/L Alkaline Phosphatase 81 (46-116) U/L Albumin 4.6 (3.5-5.0) gm/dL Urine 02/24/25 Range/Units 14:35 Urine Color Colorless A (Lt Yel-Yel) Urine Clarity Clear (Clear/Hazy) Urine pH 7.5 H (5.0-7.0) Ur Specific [place] 1.027 (1.001-1.035) Urine Protein Negative (Neg - Trace) Urine Glucose (UA) Negative (Negative) Assessment & Plan Problem List (1) Witnessed seizure-like activity: Status: Acute Assessment and plan: Continue with Keppra and Ativan for as needed seizures Continue to monitor for any recurrent seizures and follow seizure precautions. Follow-up with EEG and MRI brain with and without contrast. (2) Pugh's palsy: Status: Acute Assessment and plan: Recent onset of Pugh's palsy with the left Niko facial weakness. Continue with the prednisone 60 mg for 3 more days followed by weaning by 10 mg daily for another 5 days along with acyclovir 800 mg Q8. (3) Hypertension: Status: Acute Assessment and plan: Continue with aggressive blood pressure management. This could be contributing to the headache, consider adding gabapentin 100 mg 3 times daily and restrict Tylenol and NSAIDs usage to prevent rebound headache.
[2025-02-25] VITALS (9 sets, daily range): BP systolic 140–149; BP diastolic 90–104; PULSE 59–102; RESP 11–20; TEMP 36.1–36.4; O2SAT 96–98
--- NOTE | 2025-02-25 00:41 | PC.NURSE ---
DR. JIMENEZ NOTIFIED OF PT'S HEADACHE PS 08/24. NO NEW ORDER.
[2025-02-25] MEDS: HEPARIN SOD INJ 5000 UNIT/ML VIAL SC ×2 (00:52→14:21)
[2025-02-25] MEDS: HYDROcodone/APAP 5/325 TABLET 1 TAB PO (00:52)
[2025-02-25] MEDS: ACYCLOVIR 800 MG TABLET PO ×3 (05:11→21:19)
--- NOTE | 2025-02-25 05:30 | RESP.EEG ---
EEG complete and ready to read
[2025-02-25 06:00] LABS: Basophils # (Auto) 0.1 Thou/mm3 (0.0-0.2); Basophils % (Auto) 1 % (0-2.5); Eosinophils # (Auto) 0.3 Thou/mm3 (0.0-0.5); Eosinophils % (Auto) 5 % (0-10); Hematocrit 46.8 % (41.0-53.0); Hemoglobin 16.3 g/dL (13.5-16.0); Immature Granulocytes % (Auto) 1 % (0-0); Immature Granulocytes Auto 0.05 Thou/mm3 (0.00-0.00); Lymphocytes # (Auto) 2.4 Thou/mm3 (1.0-4.8); Lymphocytes % (Auto) 36 % (10-50); Mean Corpuscular HGB Conc 34.8 g/dl (31.0-37.0); Mean Corpuscular Hemoglobin 29.4 pg (25.0-35.0); Mean Corpuscular Volume 85 fL (80-100); Monocytes # (Auto) 0.5 Thou/mm3 (0.0-0.8); Monocytes % (Auto) 7 % (0-12); Neutrophils # (Auto) 3.4 Thou/mm3 (1.8-7.7); Neutrophils % (Auto) 51 % (37-80); Nucleated Red Blood Cell % 0 /100 WBC (0); Platelet Count 224 Thou/mm3 (140-440); RDW Standard Deviation 36.3 fL (35.1-43.9); Red Blood Count 5.54 Miln/mm3 (4.50-5.90); White Blood Count 6.6 Thou/mm3 (3.8-10.6)
[2025-02-25 06:40] LABS: Alanine Aminotransferase 24 U/L (10-49); Albumin, Serum 3.9 gm/dL (3.5-5.0); Albumin/Globulin Ratio 1.5 (1.2-2.2); Alkaline Phosphatase 73 U/L (46-116); Anion Gap 8 (7-16); Aspartate Amino Transferase 21 U/L (0-34); BUN/Creatinine Ratio 11 Ratio (12-20); Bilirubin,Total 0.8 mg/dL (0.3-1.2); Blood Urea Nitrogen 9 mg/dL (9-23); Calcium 9.2 mg/dL (8.3-10.6); Calcium (Corrected) 9.3 mg/dL (8.5-10.1); Carbon Dioxide 27.7 mMol/L (20.0-31.0); Cardiac Risk Estimate 3.2 RATIO (4.0-6.7); Chloride 105 mMol/L (98-107); Cholesterol 124 mg/dL (132-200); Creatinine (Component) 0.8 mg/dL (0.6-1.3); Estimated Creatinine Clearance 123.9 mL/min (>60); Globulin 2.6 gm/dL (2.3-3.5); Glucose 100 mg/dL (74-106); HDL Cholesterol 39 mg/dL (40-60); LDL Cholesterol,Calculated 43 mg/dL (0-130); Magnesium 2.1 mg/dL (1.6-2.6); Osmolality,Calculated 279 (275-295); Phosphorous 4.3 mg/dL (2.4-5.1); Sodium 141 mMol/L (136-145); Thyroid Stimulating Hormone 5.31 uIU/mL (0.55-4.78); Total Protein 6.5 gm/dL (5.7-8.2); Triglycerides 210 mg/dL (30-150); eGFR > 60 See Note
[2025-02-25 08:26] LABS: Free T4 (Free Thyroxine) 1.34 ng/dL (0.89-1.76)
[2025-02-25] MEDS: predniSONE 20 MG TABLET 60 MG PO (09:19)
[2025-02-25] MEDS: levETIRAcetam INJ 100 MG/ML VIAL 5ML 1000 MG IVP ×2 (09:19→21:19)
[2025-02-25] MEDS: Lisinopril 20 MG TABLET PO (09:19)
[2025-02-25] MEDS: DiphenhydrAMINE INJ 50 MG/ML VIAL 12.5 MG IVP (09:20)
[2025-02-25] MEDS: KETOROLAC INJ 30 MG/ML VIAL IVP (09:20)
[2025-02-25] MEDS: METOCLOPRAMIDE INJ 5 MG/ML VIAL 2 ML 10 MG IVP (09:21)
--- NOTE | 2025-02-25 12:13 | PC.SS ---
This is 44-year-old, male who presented to the ED due to suffering from a seizure. Patient appeared alert and oriented to self, place and situation. Patient was pleasant, his mood and behavior were ordinary. Patient is legally detained at the [facility] ([facility]). Patient is independent with all ADLs, no DME use. Patient assigned his medical decision maker as Roxanna Chaidez, whom is his life partner. Patient has no PCP outside [facility]. When medically clear, patient will return to [facility].
--- NOTE | 2025-02-25 16:49 | ESPR_ITS ---
Documentation for date of: 02/25/25 Subjective Subjective Interval history: No overnight events. 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 Patient re- admitted secondary to witness seizure by patient's cell mate, from long term. No overnight fevers. No chills or double vision. Patient complaining of headache 08/24. CT head negative. CTA neck and head negative. Pateint given ketoralac, benadrly and metoclopramide for head, wich improved. Recently started on Acyclovir. Negative CK. Exam Vital Signs Temp Pulse Resp BP Pulse Ox O2 Del Method 97.1 F 91 15 140/92 H 97 Room Air 02/25/25 16:00 02/25/25 16:00 02/25/25 16:00 02/25/25 16:00 02/25/25 16:02/25/25 16:00 Narrative Exam General Appearance: Alert & Oriented X3, well-nourished male who is lying in bed in no acute distress HEENT: Skull symmetrical and atraumatic. Conjunctivae pin and moist. Pupils equal, round, reactive to light and accommodation (PERRL). External ear without lesion or discharge. Straight, nares patient, mucosa pink, no discharge. No thyroid nodule appreciated. No cervical lymphadenopathy. Cardio: Normal Rate and Rhythm with S1 and S2 heart sounds. No murmurs or extra heart sounds auscultated. No bruits on carotid auscultation. No peripheral edema or cyanosis. Lungs: Symmetric with good expansion. Chest and back non-tender. Breath sounds vesicular without crackles, wheezing or rhonchi Abdomen: Non-tender, Non-distended, Normal Reactive Bowel Sounds Neuro: Alert, cooperative, oriented to person, place, and time. Speech clear. CN grossly intact. Upper motor strength 5/5 and Lower motor strength 5/5. Sensation intact. Objective Labs 02/26/25 07:41 02/26/25 07:41 Labs: Laboratory Results - last 24 hr 02/24/25 02/25/25 18:41 05:18 WBC 6.6 RBC 5.54 Hgb 16.3 H Hct 46.8 MCV 85 MCH 29.4 MCHC 34.8 RDW Std Deviation 36.3 Plt Count 224 Neut % (Auto) 51 Lymph % (Auto) 36 [place] % (Auto) 7 Eos % (Auto) 5 Baso % (Auto) 1 Neut # (Auto) 3.4 Lymph # (Auto) 2.4 [place] # (Auto) 0.5 Eos # (Auto) 0.3 Baso # (Auto) 0.1 Immature Gran # (Auto) 0.05 H Absolute Nucleated RBC 0.00 Immature Gran % 1 H Nucleated RBC % 0 Sodium 141 Potassium 4.0 Chloride 105 Carbon Dioxide 27.7 Anion Gap 8 BUN 9 Creatinine 0.8 Estim Creat Clear Calc 123.9 eGFR > 60 BUN/Creatinine Ratio 11 L Glucose 100 Calculated Osmolality 279 Lactic Acid 1.7 Calcium 9.2 Corrected Calcium 9.3 Phosphorus 4.3 Magnesium 2.1 Total Bilirubin 0.8 AST 21 ALT 24 Alkaline Phosphatase 73 Total Protein 6.5 Albumin 3.9 D Globulin 2.6 Albumin/Globulin Ratio 1.5 Triglycerides 210 H Cholesterol 124 L LDL Cholesterol, Calc 43 HDL Cholesterol 39 L Cholesterol/HDL Ratio 3.2 L TSH 5.31 H Free T4 1.34 Quality Measures Quality Measures stroke Suspected type of Stroke: Unknown at this time Last known well (date): 02/24/25 Last known well (time): 09:00 Tenecteplase given: Reason(s) Tenecteplase not given: Siezure at onset with post-ictal neuro impairment not given Rehab services: PT evaluation ordered (Not indicated ) and Speech Language Pathology eval ordered (not indicated ) VTE Prophylaxis: pharmaceutical Antithrombotic by day 2:: not indicated (describe) Statin ordered: <75 y/o high intensity dose Anticoagulation ordered for A-fib or flutter (current or hx): not indicated Assessment & Plan Assessment Current Active Medications: Generic Name Dose Route Start Last Admin Trade Name Wilfridq PRN Reason Stop Dose Admin Acetaminophen 650 mg 02/24/25 13:31 02/24/25 23:41 Acetaminophen 325 Mg Tablet PO 03/26/25 13:30 650 mg Q6H PRN Administration PAIN OR FEVER > 101 Acyclovir 800 mg 02/24/25 14:30 02/25/25 14:51 Acyclovir 800 Mg Tablet PO 03/03/25 14:29 800 mg TID NUBIA Administration Atorvastatin Calcium 40 mg 02/24/25 21:00 02/24/25 21:02 Atorvastatin Calcium 20 Mg Tablet PO 03/26/25 20:59 40 mg HS NUBIA Administration Heparin Sodium (Porcine) 5,000 unit 02/24/25 13:45 04/13/25 14:21 Heparin Sod Inj 5000 Unit/Ml Vial SC 03/10/25 13:44 5,000 unit Q12H NUBIA Administration Hydralazine HCl 10 mg 02/24/25 13:40 Hydralazine Inj 20 Mg/Ml Vial IV 03/26/25 13:39 Q6H PRN hypertension Levetiracetam 1,000 mg 02/24/25 21:00 02/25/25 09:19 Levetiracetam Inj 100 Mg/Ml Vial 5ml IVP 03/26/25 20:59 1,000 mg Q12HR NUBIA Administration Lisinopril 20 mg 02/25/25 09:00 02/25/25 09:19 Lisinopril 20 Mg Tablet PO 03/27/25 08:59 20 mg QDAY NUBIA Administration Lorazepam 2 mg 02/24/25 13:36 Lorazepam 2 Mg/Ml Vial IVP Q15MIN PRN Seizure Activity Ondansetron HCl 4 mg 02/24/25 10:26 Ondansetron Inj 2 Mg/Ml Inj 2 Ml IV 03/26/25 10:25 Q4HR PRN NAUSEA OR VOMITING Protocol Prednisone 60 mg 02/25/25 09:00 02/25/25 09:19 Prednisone 20 Mg Tablet PO 03/03/25 14:24 60 mg QDAY NUBIA Administration Plan Patient is a 46-year-old male with a previous medical history of hypertension from [facility] who was admitted for new onset of seizure. #New onset seizure Patient came in from long term after witnessed episode of seizure which lasted about 15 to 20 minutes, patient regained consciousness right after seizure, however was not recalling any prior events. Acyclovir maybe known to cause seizure activity, given this is a new medication can not be ruled out vs less likely secondary to metabolic given CMP within normal limits vs less likely infectious such as meningitis as there is no nucal rigidity and no signs of infection such as pyrexia or elevated WBC. TBI can not be ruled out given increased hgb concentration. Diagnostics: CT head without contrast was negative for mass, hemorrhage, or midline shift CTA was negative for any large vessel occlusion Cervical/spine CT was negative for any acute fracture. In ED patient received 2 g of loading dose of Keppra, Ativan, atorvastatin teleneuro was consulted CPK is negative, lactic acid 3.0, 2.7, 1.7 Plan - EEG was ordered - MRI without contrast - Keppra thousand twice daily - Ativan as needed for seizure activity - seizure precaution - neurocheck q4h - Neurology Dr. 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 Likley secondary to hemoconcentration but secondary causes such as WALTER can not be ruled out. Less likely secondary to primary. Plan -No acute intervention -Consider Cirilo 2 mutation, EPO, and sleep study outpatient Health Maintenance: Disp: Pt is currently admitted to floors for further management of new onset of seizure, awaiting neuro consult, MRI, and EEG. FEN: regular diet DVT: on subQ heparin Q12 GI: non Code: Full Code - The patient's plan was discussed with attending Dr. Sue Blanco MD PGY1 Internal Medicine Attending Provider Attestation/Addendum 44-year-old male with multiple comorbidities including hypertension and recent diagnosis of left Pugh's palsy on prednisone and acyclovir who was recently discharged from our hospital on 02/22/2024 who presented with episode of seizures. Per documentation and report, patient was watching TV when his cellmate noticed him seizing lasted about 15 to 20 seconds however no tongue biting, urinary incontinence. As for characteristic of the seizure, unable to give details as it was focal for generalized tonic-clonic. In the ER, patient received Ativan and Keppra 2000 mg loading dose. Workup including CT, CTA head and neck and CT cervical spine with no acute intracranial abnormality. Teleneuro was consulted and recommended admission for EEG and an MRI. As of now, plan to continue Keppra and admit the patient to telemetry with seizure precaution. As for left Pugh's palsy, patient does have significant left-sided facial droop and facial weakness for which plan to continue acyclovir 800 mg 3 times daily and prednisone 60 mg. Of note, in regards to etiology of seizures unknown etiology at this point and will reach out to neurology regarding possible causes including acyclovir as there is an reports of acyclovir causing seizures. As of now, no overnight seizures however he does complain of left frontal headache. I reviewed above note and agree with findings and plans. I have also personally examined the patient with medicine team and went over assessment and plan with medical team including architect internship and resident physician.
[2025-02-25] MEDS: ACETAMINOPHEN 325 MG TABLET 650 MG PO (17:13)
[2025-02-25] MEDS: KETOROLAC INJ 30 MG/ML VIAL 15 MG IVP (18:40)
[2025-02-25] MEDS: ATORVASTATIN CALCIUM 20 MG TABLET 40 MG PO (21:19)
[2025-02-25] MEDS: Artificial Tears 225 DROP/15 ML BTL BOTH EYES (21:25)
[2025-02-25] MEDS: GABAPENTIN 100 MG CAPSULE PO (21:31)
[2025-02-26] VITALS (10 sets, daily range): BP systolic 124–169; BP diastolic 74–110; PULSE 61–100; RESP 15–24; TEMP 36.2–36.8; O2SAT 94–98
--- NOTE | 2025-02-26 | XR_ITS ---
Examination: MRI brain with intravenous contrast TECHNIQUE: Axial sagittal coronal brain MRI images post intravenous ministration 17 cc gadolinium Exam date and time: February 26, 2025 0932 hours INDICATIONS: Seizure episode February 24, 2025 FINDINGS: Significant bilateral mastoiditis Chronic pansinusitis Ventricles are not enlarged. No abnormal cerebellar or cerebral enhancement Pituitary is not enlarged No displacement of the optic chiasm No midline shift IMPRESSION: Significant bilateral mastoiditis No abnormal enhancing cerebellar or cerebral lesions
[2025-02-26] MEDS: KETOROLAC INJ 30 MG/ML VIAL 15 MG IVP (00:48)
[2025-02-26] MEDS: HEPARIN SOD INJ 5000 UNIT/ML VIAL SC ×2 (00:57→13:14)
[2025-02-26] MEDS: ACYCLOVIR 800 MG TABLET PO ×2 (05:31→13:14)
[2025-02-26] MEDS: GABAPENTIN 100 MG CAPSULE PO ×4 (05:31→21:36)
[2025-02-26] MEDS: Artificial Tears 225 DROP/15 ML BTL BOTH EYES (05:32)
[2025-02-26 06:02] LABS: Basophils % (Auto) 0 % (0-2.5); Eosinophils # (Auto) 0.2 Thou/mm3 (0.0-0.5); Eosinophils % (Auto) 1 % (0-10); Hematocrit 31.8 % (41.0-53.0); Hemoglobin 11.1 g/dL (13.5-16.0); Immature Granulocytes % (Auto) 1 % (0-0); Immature Granulocytes Auto 0.05 Thou/mm3 (0.00-0.00); Lymphocytes # (Auto) 1.8 Thou/mm3 (1.0-4.8); Lymphocytes % (Auto) 17 % (10-50); Mean Corpuscular HGB Conc 34.9 g/dl (31.0-37.0); Mean Corpuscular Hemoglobin 29.3 pg (25.0-35.0); Mean Corpuscular Volume 84 fL (80-100); Monocytes # (Auto) 0.6 Thou/mm3 (0.0-0.8); Monocytes % (Auto) 6 % (0-12); Neutrophils # (Auto) 7.8 Thou/mm3 (1.8-7.7); Neutrophils % (Auto) 75 % (37-80); Nucleated Red Blood Cell % 0 /100 WBC (0); Platelet Count 171 Thou/mm3 (140-440); Red Blood Count 3.79 Miln/mm3 (4.50-5.90); White Blood Count 10.4 Thou/mm3 (3.8-10.6)
--- NOTE | 2025-02-26 06:25 | PD.VPROG1 ---
Telemedicine visit statement This visit was conducted with the use of interactive audio and video telecommunications system that permits real time communication between the patient and the provider. Patient's verbal consent for virtual visit was obtained on 02/26/25 at 0625. Documentation for date of: 02/26/25 Subjective Subjective Interval history: Patient is an telemetry. Continues to have left-sided facial weakness and intermittent headache. Blood pressure has been up and is on additional antihypertensives. He complains of headache intermittently. Virtual exam Vital Signs Temp Pulse Resp BP Pulse Ox O2 Del Method 97.2 F 61 16 128/74 98 Room Air 02/26/25 04:00 02/26/25 04:00 02/26/25 04:00 02/26/25 04:00 02/26/25 04:00 02/26/25 00:00 Objective Labs 02/25/25 05:18 02/25/25 05:18 Labs: Laboratory Results - last 24 hr 02/25/25 05:18 Sodium 141 Potassium 4.0 Chloride 105 Carbon Dioxide 27.7 Anion Gap 8 BUN 9 Creatinine 0.8 Estim Creat Clear Calc 123.9 eGFR > 60 BUN/Creatinine Ratio 11 L Glucose 100 Calculated Osmolality 279 Calcium 9.2 Corrected Calcium 9.3 Phosphorus 4.3 Magnesium 2.1 Total Bilirubin 0.8 AST 21 ALT 24 Alkaline Phosphatase 73 Total Protein 6.5 Albumin 3.9 D Globulin 2.6 Albumin/Globulin Ratio 1.5 Triglycerides 210 H Cholesterol 124 L LDL Cholesterol, Calc 43 HDL Cholesterol 39 L Cholesterol/HDL Ratio 3.2 L TSH 5.31 H Free T4 1.34 Assessment & Plan Problem List (1) Witnessed seizure-like activity: Status: Acute Assessment and plan: Continue with the Keppra, follow-up with the EEG and MRI brain when they become available. Continue Ativan as needed for breakthrough seizures. Follow seizure precautions. (2) Hypertension: Status: Acute Assessment and plan: Continue with aggressive blood pressure management. Gabapentin 100 mg 3 times daily and restrict the use of NSAIDs to prevent complications including medication overuse headache/worsening hypertension (3) Pugh's palsy: Status: Acute Assessment and plan: With the left residual facial weakness of lower motor neuron type. Continue with acyclovir and prednisone 60 mg for another 3 days followed by weaning by daily. Continue with facial strengthening exercises and massage.
[2025-02-26 06:32] LABS: Alanine Aminotransferase 12 U/L (10-49); Albumin/Globulin Ratio 1.4 (1.2-2.2); Alkaline Phosphatase 36 U/L (46-116); Anion Gap 10 (7-16); Aspartate Amino Transferase < 8 U/L (0-34); BUN/Creatinine Ratio 30 Ratio (12-20); Bilirubin,Total 0.3 mg/dL (0.3-1.2); Blood Urea Nitrogen 9 mg/dL (9-23); Carbon Dioxide 16.1 mMol/L (20.0-31.0); Chloride 124 mMol/L (98-107); Creatinine (Component) 0.3 mg/dL (0.6-1.3); Estimated Creatinine Clearance 327.6 mL/min (>60); Globulin 1.4 gm/dL (2.3-3.5); Glucose 77 mg/dL (74-106); Magnesium 1.1 mg/dL (1.6-2.6); Osmolality,Calculated 295 (275-295); Phosphorous 1.9 mg/dL (2.4-5.1); Sodium 150 mMol/L (136-145); Total Protein 3.4 gm/dL (5.7-8.2); eGFR > 60 See Note
[2025-02-26 06:47] LABS: Potassium 2.2 mMol/L (3.4-5.1)
[2025-02-26 06:48] LABS: Calcium (Corrected) 6.6 mg/dL (8.5-10.1)
[2025-02-26 08:04] LABS: Hematocrit 46.6 % (41.0-53.0)
[2025-02-26] MEDS: levETIRAcetam INJ 100 MG/ML VIAL 5ML 1000 MG IVP (08:22)
[2025-02-26] MEDS: predniSONE 20 MG TABLET 60 MG PO (08:23)
[2025-02-26] MEDS: Lisinopril 20 MG TABLET PO (08:23)
[2025-02-26 08:30] LABS: Alanine Aminotransferase 25 U/L (10-49); Albumin/Globulin Ratio 1.4 (1.2-2.2); Alkaline Phosphatase 77 U/L (46-116); Anion Gap 8 (7-16); Aspartate Amino Transferase 22 U/L (0-34); BUN/Creatinine Ratio 18 Ratio (12-20); Bilirubin,Total 0.7 mg/dL (0.3-1.2); Blood Urea Nitrogen 14 mg/dL (9-23); Calcium 9.8 mg/dL (8.3-10.6); Calcium (Corrected) 9.8 mg/dL (8.5-10.1); Carbon Dioxide 25.8 mMol/L (20.0-31.0); Chloride 106 mMol/L (98-107); Creatinine (Component) 0.8 mg/dL (0.6-1.3); Estimated Creatinine Clearance 122.8 mL/min (>60); Globulin 2.8 gm/dL (2.3-3.5); Glucose 115 mg/dL (74-106); Osmolality,Calculated 280 (275-295); Sodium 140 mMol/L (136-145); Total Protein 6.8 gm/dL (5.7-8.2); eGFR > 60 See Note
[2025-02-26] MEDS: ACETAMINOPHEN 325 MG TABLET 650 MG PO ×2 (09:13→20:02)
[2025-02-26 09:41] LABS: HIV (1&2) Antibody Rapid Non-Reactive
--- NOTE | 2025-02-26 14:51 | ESPR_ITS ---
<Statement entered by Jose Elias Rogers MD - 03/02/25 12:59> I reviewed above note and agree with findings and plans. I have also personally examined the patient with medicine team and went over assessment and plan with medical team including computer science intern and resident physician. Documentation for date of: 02/26/25 Senior resident attestation: The patient was evaluated bedside, neurological deficits affecting the face secondary to Pugh's palsy, continued on acyclovir and prednisone. New onset seizures, pending EEG and MRI, will await neurologic recommendations, started on Keppra. Patient had rapid response in the afternoon for seizures, at the bedside patient continued to have rocking motion [id number] in the bed, not typical of seizures, ordered CK, prolactin, as needed Ativan. Patient evaluated and examined at the bedside, plan of care discussed with rest of the team including my attending physician, except as noted. Quresh PGY2 Subjective Subjective Interval history: No overnight events. Patient MRI-no abnormal enhancing cerebellar and cerebral lesions. No chest pain reported or SOB overnight. NO fevers. Gabapentin on board 100 TID. Rapid resonse called for patient seizure noted by guard with tonic posturing reported by guard at beside w/ mild doorling. No post-ictal stated noted. Vitals remained stable with no tachycardia noted or hypertension greater than >60. Patient continued to follow commands during rapid and was responsive. Patient pupils were reactive to light and patinet's upper motor function was intact as he dropped his arm down form a raised position slowly. Neurology consulted, D/C acyclovir and D/C Keppra. Pending EEG. Exam Vital Signs Temp Pulse Resp BP Pulse Ox O2 Del Method 97.4 F 86 18 145/91 H 96 Room Air 02/26/25 12:02/26/25 12:02/26/25 12:02/26/25 12:02/26/25 12:02/26/25 12:00 Narrative Exam General Appearance: Alert & Oriented X3, well-nourished male who is lying in bed in no acute distress HEENT: Skull symmetrical and atraumatic. Conjunctivae pin and moist. Pupils equal, round, reactive to light and accommodation (PERRL). External ear without lesion or discharge. Straight, nares patient, mucosa pink, no discharge. No thyroid nodule appreciated. No cervical lymphadenopathy. Cardio: Normal Rate and Rhythm with S1 and S2 heart sounds. No murmurs or extra heart sounds auscultated. No bruits on carotid auscultation. No peripheral edema or cyanosis. Lungs: Symmetric with good expansion. Chest and back non-tender. Breath sounds vesicular without crackles, wheezing or rhonchi Abdomen: Non-tender, Non-distended, Normal Reactive Bowel Sounds Neuro: Alert, cooperative, oriented to person, place, and time. Speech clear. CN grossly intact. Upper motor strength 5/5 and Lower motor strength 5/5. Sensation intact. Objective Labs 02/27/25 04:42 02/27/25 04:42 Labs: Laboratory Results - last 24 hr 02/26/25 02/26/25 05:28 07:41 WBC 10.4 D RBC 3.79 L Hgb 11.1 L D 17.0 H D Hct 31.8 L D 46.6 D MCV 84 MCH 29.3 MCHC 34.9 RDW Std Deviation 36.0 Plt Count 171 D Neut % (Auto) 75 Lymph % (Auto) 17 [place] % (Auto) 6 Eos % (Auto) 1 Baso % (Auto) 0 Neut # (Auto) 7.8 H Lymph # (Auto) 1.8 [place] # (Auto) 0.6 Eos # (Auto) 0.2 Baso # (Auto) 0.0 Immature Gran # (Auto) 0.05 H Absolute Nucleated RBC 0.00 Immature Gran % 1 H Nucleated RBC % 0 Sodium 150 H 140 D Potassium 2.2 L* D 4.0 D Chloride 124 H* 106 Carbon Dioxide 16.1 L 25.8 Anion Gap 10 8 BUN 9 14 Creatinine 0.3 L D 0.8 D Estim Creat Clear Calc 327.6 122.8 eGFR > 60 > 60 BUN/Creatinine Ratio 30 H 18 Glucose 77 115 H Calculated Osmolality 295 280 Calcium 5.0 L* D 9.8 D Corrected Calcium 6.6 L* D 9.8 D Phosphorus 1.9 L Magnesium 1.1 L Total Bilirubin 0.3 D 0.7 AST < 8 22 ALT 12 25 Alkaline Phosphatase 36 L D 77 D Total Protein 3.4 L 6.8 Albumin 2.0 L D 4.0 D Globulin 1.4 L 2.8 Albumin/Globulin Ratio 1.4 1.4 HIV 1&2 Antibody Rapid Non-Reactive Quality Measures Quality Measures stroke Suspected type of Stroke: Unknown at this time Last known well (date): 02/24/25 Last known well (time): 09:00 Tenecteplase given: Reason(s) Tenecteplase not given: Siezure at onset with post-ictal neuro impairment not given Rehab services: PT evaluation ordered and Speech Language Pathology eval ordered VTE Prophylaxis: pharmaceutical Antithrombotic by day 2:: not indicated (describe) Statin ordered: <75 y/o high intensity dose Anticoagulation ordered for A-fib or flutter (current or hx): not indicated Assessment & Plan Assessment Current Active Medications: Generic Name Dose Route Start Last Admin Trade Name Freq PRN Reason Stop Dose Admin Acetaminophen 650 mg 02/25/25 17:15 02/26/25 09:13 Acetaminophen 325 Mg Tablet PO 03/26/25 13:30 650 mg Q6H PRN Administration PAIN OR FEVER > 101 Acyclovir 800 mg 02/24/25 14:30 02/26/25 13:14 Acyclovir 800 Mg Tablet PO 03/03/25 14:29 800 mg TID NUBIA Administration Artificial Tears 0 drop 02/25/25 18:09 02/26/25 05:32 Artificial Tears 225 Drop/15 Ml Btl BOTH EYES 03/27/25 18:08 2 drop PRN PRN Administration TO KEEP EYES MOIST Atorvastatin Calcium 40 mg 02/24/25 21:00 02/25/25 21:19 Atorvastatin Calcium 20 Mg Tablet PO 03/26/25 20:59 40 mg HS NUBIA Administration Gabapentin 100 mg 02/25/25 22:00 02/26/25 13:14 Gabapentin 100 Mg Capsule PO 03/27/25 21:59 100 mg TID NUBIA Administration Heparin Sodium (Porcine) 5,000 unit 02/24/25 13:45 02/26/25 13:14 Heparin Sod Inj 5000 Unit/Ml Vial SC 03/10/25 13:44 5,000 unit Q12H NUBIA Administration Hydralazine HCl 10 mg 02/24/25 13:40 Hydralazine Inj 20 Mg/Ml Vial IV 03/26/25 13:39 Q6H PRN hypertension Levetiracetam 1,000 mg 02/24/25 21:00 02/26/25 08:22 Levetiracetam Inj 100 Mg/Ml Vial 5ml IVP 03/26/25 20:59 1,000 mg Q12HR NUBIA Administration Lisinopril 20 mg 02/25/25 09:00 02/26/25 08:23 Lisinopril 20 Mg Tablet PO 03/27/25 08:59 20 mg QDAY NUBIA Administration Lorazepam 2 mg 02/24/25 13:36 Lorazepam 2 Mg/Ml Vial IVP Q15MIN PRN Seizure Activity Ondansetron HCl 4 mg 02/24/25 10:26 Ondansetron Inj 2 Mg/Ml Inj 2 Ml IV 03/26/25 10:25 Q4HR PRN NAUSEA OR VOMITING Protocol Prednisone 60 mg 02/25/25 09:00 02/26/25 08:23 Prednisone 20 Mg Tablet PO 03/03/25 14:24 60 mg QDAY NUBIA Administration Plan Patient is a 46-year-old male with a previous medical history of hypertension from [facility] who was admitted for new onset of seizure. #New onset seizure Patient came in from intermediate after witnessed episode of seizure which lasted about 15 to 20 minutes, patient regained consciousness right after seizure, however was not recalling any prior events. Acyclovir maybe known to cause seizure activity, given this is a new medication can not be ruled out vs less likely secondary to metabolic given CMP within normal limits vs less likely infectious such as meningitis as there is no nucal rigidity and no signs of infection such as pyrexia or elevated WBC. TBI can not be ruled out given increased hgb concentration. DDX: Function Seizure vs Somatic Disorder vs malingering vs seizure less likely given presentation of no ictal state, no change in vital, including oxygen saturation, patient able to follow commands, and no loss of motor function, no incotinence noted. Diagnostics: MRI unremarkable. CT head without contrast was negative for mass, hemorrhage, or midline shift CTA was negative for any large vessel occlusion Cervical/spine CT was negative for any acute fracture. In ED patient received 2 g of loading dose of Keppra, Ativan, atorvastatin teleneuro was consulted CPK is negative, lactic acid 3.0, 2.7, 1.7 Plan - EEG was ordered - Keppra thousand twice daily-D/C per neuro - Ativan as needed for seizure activity-D/C per neuro - seizure precaution - neurocheck q4h - Neurology Dr. 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 Likley secondary to hemoconcentration but secondary causes such as WALTER can not be ruled out. Less likely secondary to primary. Plan -No acute intervention -Consider Cirilo 2 mutation, EPO, and sleep study outpatient Health Maintenance: Disp: Pt is currently admitted to floors for further management of new onset of seizure, awaiting final neuro recs and pending EEG. FEN: regular diet DVT: on subQ heparin Q12 GI: non Code: Full Code - The patient's plan was discussed with attending Dr. Rogers & Cherelle Blanco MD PGY1 Internal Medicine
--- NOTE | 2025-02-26 15:02 | PC.SS ---
Rounding: Pending MRI and EEG
--- NOTE | 2025-02-26 15:30 | EKG_ITS ---
[facility] Test Date: 2025-02-26 Pat Name: BRENDA THOMASON [facility] Gender[facility] Panel Installer: WILLIAN : 1980 Requested By: Evie Blanco Order Number: [id number] Reading MD: Evie Blanco Measurements Intervals [place] Rate: 87 P: 60 NC: 182 QRS: 73 QRSD: 106 T: 64 QT: 342 QTc: 412 Interpretive Statements SINUS RHYTHM Compared to ECG 02/24/2025 11:30:17 No significant changes /store/S0/[id number].pdf
[2025-02-26] MEDS: LORazepam 2 MG/ML VIAL IVP (15:31)
--- NOTE | 2025-02-26 15:42 | EVENTNT_ITS ---
<Statement entered by Jose Elias Rogers MD - 03/02/25 13:00> I reviewed above note and agree with findings and plans. I have also personally examined the patient with medicine team and went over assessment and plan with medical team including undergraduate intern and resident physician. Documentation for date of: 02/26/25 Event Note Event Note: Rapid Response-Seizure Rapid response called for concern for seizure. Patient's ocean lifeguard specialist reported that was drooling, stiffened, and appeared tonic. During rapid patient's vitals remained stable with no significant hypertension noted and oxygen saturation remained stable. No post ictal state noted. Patient following commands. No loss of motor function. Seizure precautions remain in place and ativan given X 1. Patient's labs review and remained unremarkable with all elctrolytes within normal limits. Gabapentin, Acyclovir, and Keppra are primary medications on board. intervention: CBC, CMP, EKG, Lactic Acid, CK, and Prolactin placed physical exam unremarkable. Patient remained hemodynamically stable. Follow up with neurology. - The patient's plan was discussed with attending Dr. Rogers and senior residents Dr. King Blanco MD PGY1 Internal Medicine
[2025-02-26 15:49] LABS: Lactate (Lactic Acid) 2.7 mMol/L (0.4-2.0)
[2025-02-26 15:52] LABS: Basophils % (Auto) 0 % (0-2.5); Eosinophils % (Auto) 0 % (0-10); Hemoglobin 17.2 g/dL (13.5-16.0); Immature Granulocytes % (Auto) 1 % (0-0); Immature Granulocytes Auto 0.12 Thou/mm3 (0.00-0.00); Lymphocytes # (Auto) 1.3 Thou/mm3 (1.0-4.8); Lymphocytes % (Auto) 10 % (10-50); Mean Corpuscular HGB Conc 35.8 g/dl (31.0-37.0); Mean Corpuscular Hemoglobin 29.5 pg (25.0-35.0); Mean Corpuscular Volume 82 fL (80-100); Monocytes # (Auto) 0.2 Thou/mm3 (0.0-0.8); Monocytes % (Auto) 2 % (0-12); Neutrophils # (Auto) 11.9 Thou/mm3 (1.8-7.7); Neutrophils % (Auto) 87 % (37-80); Nucleated Red Blood Cell % 0 /100 WBC (0); Platelet Count 249 Thou/mm3 (140-440); RDW Standard Deviation 35.8 fL (35.1-43.9); Red Blood Count 5.83 Miln/mm3 (4.50-5.90); White Blood Count 13.6 Thou/mm3 (3.8-10.6)
[2025-02-26 16:07] LABS: Alanine Aminotransferase 40 U/L (10-49); Albumin, Serum 4.3 gm/dL (3.5-5.0); Albumin/Globulin Ratio 1.5 (1.2-2.2); Alkaline Phosphatase 81 U/L (46-116); Anion Gap 7 (7-16); Aspartate Amino Transferase 37 U/L (0-34); BUN/Creatinine Ratio 15 Ratio (12-20); Bilirubin,Total 0.6 mg/dL (0.3-1.2); Blood Urea Nitrogen 12 mg/dL (9-23); Calcium 9.6 mg/dL (8.3-10.6); Calcium (Corrected) 9.6 mg/dL (8.5-10.1); Carbon Dioxide 23.7 mMol/L (20.0-31.0); Chloride 106 mMol/L (98-107); Creatine Kinase 31 U/L (34-171); Creatinine (Component) 0.8 mg/dL (0.6-1.3); Estimated Creatinine Clearance 122.8 mL/min (>60); Globulin 2.9 gm/dL (2.3-3.5); Glucose 155 mg/dL (74-106); Osmolality,Calculated 276 (275-295); Potassium 4.3 mMol/L (3.4-5.1); Sodium 137 mMol/L (136-145); Total Protein 7.2 gm/dL (5.7-8.2); eGFR > 60 See Note
[2025-02-26 18:45] LABS: Reflex Lactate? Y
[2025-02-26 19:40] LABS: Lactic Acid, 3 HR 2.6 mMol/L (0.4-2.0)
[2025-02-26] MEDS: ATORVASTATIN CALCIUM 20 MG TABLET 40 MG PO (20:02)
[2025-02-26] MEDS: KETOROLAC INJ 30 MG/ML VIAL IVP (20:59)
--- NOTE | 2025-02-26 22:51 | ESPR_ITS ---
Documentation for date of: 02/26/25 Subjective Subjective Interval history: Patient was seen in telemetry today at the bedside. He stated that his headache is getting better. Facial weakness remains the same. Exam - Neurology Vital Signs Temp Pulse Resp BP Pulse Ox O2 Del Method 97.7 F 94 21 H 124/83 95 Room Air 02/26/25 20:00 02/26/25 20:00 02/26/25 20:00 02/26/25 20:00 02/26/25 20:00 02/26/25 20:00 Narrative Exam GENERAL APPEARANCE: Well hydrated, well-nourished in no acute distress. HEENT: Normocephalic, atraumatic, extraocular movements intact. Pupils: Equal reacting to light and accommodation NECK: Supple, no JVD or bruits. CARDIOVASULAR: Heart: S1, S2 heard, regular without S3-S4 or murmur no rubs or gallops. LUNGS/CHEST: Clear to auscultation bilaterally. No rails, rhonchi, or wheezing. Normal inspection. ABDOMEN: Soft, nontender, with normal bowel sounds. No pulsatile masses. No rebound, rigidity, or guarding. Normal inspection and palpation. EXTREMITIES: Normal inspection and palpation. No edema, clubbing or cyanosis. SKIN: Warm and dry without rashes. Normal inspection. MUSCULOSKELETAL: No cervical, thoracic, lumbar or midline bony tenderness. Normal inspection. NEURO: Alert, awake and oriented x3. Cranial nerves: II through XII grossly intact with exception of left facial weakness of lower motor neuron type. Speech and language: Normal with no dysarthria or dysphasia. Motor system: Tone and bulk: Normal: Strength: 5 out of 5 in all 4 extremities; No pronator drift noted. Deep tendon reflexes: 2+ bilaterally symmetrical. Plantar reflex: Downgoing bilaterally. Sensory system: Intact to all modalities of sensation bilaterally. Coordination: Intact to icystz-xqsm-[id number] and lfvp-pvly-vzdm test bilaterally. No ataxia, no dysmetria, or dysdiadochokinesia noted. No intention tremors noted. Gait: Normal. Toe, heel, tandem walk all are normal. Romberg: Negative. No signs of meningeal irritation noted. PSYCHIATRIC: Normal mood and affect. Objective Labs 02/27/25 04:42 02/26/25 15:39 Labs: Laboratory Results - last 24 hr 0402/26/25 02/26/25 05:28 07:41 15:39 WBC 10.4 D 13.6 H RBC 3.79 L 5.83 Hgb 11.1 L D 17.0 H D 17.2 H Hct 31.8 L D 46.6 D 48.0 MCV 84 82 MCH 29.3 29.5 MCHC 34.9 35.8 RDW Std Deviation 36.0 35.8 Plt Count 171 D 249 D Neut % (Auto) 75 87 H Lymph % (Auto) 17 10 [place] % (Auto) 6 2 Eos % (Auto) 1 0 Baso % (Auto) 0 0 Neut # (Auto) 7.8 H 11.9 H Lymph # (Auto) 1.8 1.3 [place] # (Auto) 0.6 0.2 Eos # (Auto) 0.2 0.0 Baso # (Auto) 0.0 0.0 Immature Gran # (Auto) 0.05 H 0.12 H Absolute Nucleated RBC 0.00 0.00 Immature Gran % 1 H 1 H Nucleated RBC % 0 0 Sodium 150 H 140 D 137 Potassium 2.2 L* D 4.0 D 4.3 Chloride 124 H* 106 106 Carbon Dioxide 16.1 L 25.8 23.7 Anion Gap 10 8 7 BUN 9 14 12 Creatinine 0.3 L D 0.8 D 0.8 Estim Creat Clear Calc 327.6 122.8 122.8 eGFR > 60 > 60 > 60 BUN/Creatinine Ratio 30 H 18 15 Glucose 77 115 H 155 H Calculated Osmolality 295 280 276 Lactic Acid 2.7 H Calcium 5.0 L* D 9.8 D 9.6 Corrected Calcium 6.6 L* D 9.8 D 9.6 Phosphorus 1.9 L Magnesium 1.1 L Total Bilirubin 0.3 D 0.7 0.6 AST < 8 22 37 H ALT 12 25 40 Alkaline Phosphatase 36 L D 77 D 81 Total Creatine Kinase 31 L Total Protein 3.4 L 6.8 7.2 Albumin 2.0 L D 4.0 D 4.3 Globulin 1.4 L 2.8 2.9 Albumin/Globulin Ratio 1.4 1.4 1.5 HIV 1&2 Antibody Rapid Non-Reactive 02/26/25 19:29 WBC RBC Hgb Hct MCV MCH MCHC RDW Std Deviation Plt Count Neut % (Auto) Lymph % (Auto) [place] % (Auto) Eos % (Auto) Baso % (Auto) Neut # (Auto) Lymph # (Auto) [place] # (Auto) Eos # (Auto) Baso # (Auto) Immature Gran # (Auto) Absolute Nucleated RBC Immature Gran % Nucleated RBC % Sodium Potassium Chloride Carbon Dioxide Anion Gap BUN Creatinine Estim Creat Clear Calc eGFR BUN/Creatinine Ratio Glucose Calculated Osmolality Lactic Acid 2.6 H Calcium Corrected Calcium Phosphorus Magnesium Total Bilirubin AST ALT Alkaline Phosphatase Total Creatine Kinase Total Protein Albumin Globulin Albumin/Globulin Ratio HIV 1&2 Antibody Rapid Assessment & Plan Assessment and plan (1) Witnessed seizure-like activity: Status: Acute Assessment and plan: No recurrence reported. Suspected psychogenic nonepileptic seizure EEG showed no epileptiform discharges. MRI brain: Negative study with exception of bilateral mastoiditis Discontinue Keppra. 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
[2025-02-27] VITALS: BP 146/91; PULSE 77; RESP 17; TEMP 36.4; O2SAT 96
[2025-02-27 04:00] VITALS: BP 117/70; PULSE 65; RESP 13; TEMP 36.1; O2SAT 97
[2025-02-27 05:46] LABS: Basophils % (Auto) 0 % (0-2.5); Eosinophils # (Auto) 0.2 Thou/mm3 (0.0-0.5); Eosinophils % (Auto) 1 % (0-10); Hematocrit 45.7 % (41.0-53.0); Hemoglobin 16.2 g/dL (13.5-16.0); Immature Granulocytes % (Auto) 1 % (0-0); Immature Granulocytes Auto 0.13 Thou/mm3 (0.00-0.00); Lymphocytes # (Auto) 2.6 Thou/mm3 (1.0-4.8); Lymphocytes % (Auto) 17 % (10-50); Mean Corpuscular HGB Conc 35.4 g/dl (31.0-37.0); Mean Corpuscular Hemoglobin 28.7 pg (25.0-35.0); Mean Corpuscular Volume 81 fL (80-100); Monocytes # (Auto) 0.9 Thou/mm3 (0.0-0.8); Monocytes % (Auto) 6 % (0-12); Neutrophils # (Auto) 11.6 Thou/mm3 (1.8-7.7); Neutrophils % (Auto) 76 % (37-80); Nucleated Red Blood Cell % 0 /100 WBC (0); Platelet Count 250 Thou/mm3 (140-440); RDW Standard Deviation 35.6 fL (35.1-43.9); Red Blood Count 5.65 Miln/mm3 (4.50-5.90); White Blood Count 15.4 Thou/mm3 (3.8-10.6)
[2025-02-27 06:00] VITALS: BMI 30.2
[2025-02-27 06:18] LABS: Alanine Aminotransferase 63 U/L (10-49); Albumin, Serum 4.1 gm/dL (3.5-5.0); Albumin/Globulin Ratio 1.9 (1.2-2.2); Alkaline Phosphatase 77 U/L (46-116); Anion Gap 10 (7-16); Aspartate Amino Transferase 59 U/L (0-34); BUN/Creatinine Ratio 21 Ratio (12-20); Bilirubin,Total 0.5 mg/dL (0.3-1.2); Blood Urea Nitrogen 17 mg/dL (9-23); Calcium 9.5 mg/dL (8.3-10.6); Calcium (Corrected) 9.5 mg/dL (8.5-10.1); Carbon Dioxide 24.8 mMol/L (20.0-31.0); Chloride 105 mMol/L (98-107); Creatinine (Component) 0.8 mg/dL (0.6-1.3); Estimated Creatinine Clearance 122.8 mL/min (>60); Globulin 2.2 gm/dL (2.3-3.5); Glucose 109 mg/dL (74-106); Magnesium 2.2 mg/dL (1.6-2.6); Osmolality,Calculated 281 (275-295); Phosphorous 4.3 mg/dL (2.4-5.1); Sodium 140 mMol/L (136-145); Total Protein 6.3 gm/dL (5.7-8.2); eGFR > 60 See Note
[2025-02-27] MEDS: GABAPENTIN 100 MG CAPSULE PO (06:25)
[2025-02-27 07:10] VITALS: PULSE 71; RESP 16; RESP 96
[2025-02-27 08:00] VITALS: BP 160/93; PULSE 72; PULSE 91; RESP 16; TEMP 36.5; O2SAT 96
[2025-02-27 08:49] VITALS: BP 160/93; PULSE 72
[2025-02-27] MEDS: Lisinopril 20 MG TABLET PO (08:49)
[2025-02-27] MEDS: predniSONE 20 MG TABLET 50 MG PO (08:49)
--- NOTE | 2025-02-27 11:33 | PD.RESPRO ---
Documentation for date of: 02/27/25 Exam Vital Signs Temp Pulse Resp BP Pulse Ox O2 Del Method 97.7 F 72 16 160/93 H 96 Room Air 02/27/25 08:00 02/27/25 08:49 02/27/25 08:00 02/27/25 08:49 02/27/25 08:00 02/27/25 08:00 Objective Labs 02/27/25 04:42 02/27/25 04:42 Labs: Laboratory Results - last 24 hr 02/26/25 02/26/25 02/27/25 15:39 19:29 04:42 WBC 13.6 H 15.4 H RBC 5.83 5.65 Hgb 17.2 H 16.2 H Hct 48.0 45.7 MCV 82 81 MCH 29.5 28.7 MCHC 35.8 35.4 RDW Std Deviation 35.8 35.6 Plt Count 249 D 250 Neut % (Auto) 87 H 76 Lymph % (Auto) 10 17 [place] % (Auto) 2 6 Eos % (Auto) 0 1 Baso % (Auto) 0 0 Neut # (Auto) 11.9 H 11.6 H Lymph # (Auto) 1.3 2.6 [place] # (Auto) 0.2 0.9 H Eos # (Auto) 0.0 0.2 Baso # (Auto) 0.0 0.0 Immature Gran # (Auto) 0.12 H 0.13 H Absolute Nucleated RBC 0.00 0.00 Immature Gran % 1 H 1 H Nucleated RBC % 0 0 Sodium 137 140 Potassium 4.3 4.0 Chloride 106 105 Carbon Dioxide 23.7 24.8 Anion Gap 7 10 BUN 12 17 Creatinine 0.8 0.8 Estim Creat Clear Calc 122.8 122.8 eGFR > 60 > 60 BUN/Creatinine Ratio 15 21 H Glucose 155 H 109 H Calculated Osmolality 276 281 Lactic Acid 2.7 H 2.6 H Calcium 9.6 9.5 Corrected Calcium 9.6 9.5 Phosphorus 4.3 Magnesium 2.2 Total Bilirubin 0.6 0.5 AST 37 H 59 H ALT 40 63 H Alkaline Phosphatase 81 77 Total Creatine Kinase 31 L Total Protein 7.2 6.3 Albumin 4.3 4.1 Globulin 2.9 2.2 L Albumin/Globulin Ratio 1.5 1.9 Quality Measures Quality Measures stroke Suspected type of Stroke: Unknown at this time Last known well (date): 02/24/25 Last known well (time): 09:00 Tenecteplase given: Reason(s) Tenecteplase not given: Siezure at onset with post-ictal neuro impairment not given Assessment & Plan Assessment Current Active Medications: Generic Name Dose Route Start Last Admin Trade Name Freq PRN Reason Stop Dose Admin Acetaminophen 650 mg 02/25/25 17:15 02/26/25 20:02 Acetaminophen 325 Mg Tablet PO 03/26/25 13:30 650 mg Q6H PRN Administration PAIN OR FEVER > 101 Acyclovir 800 mg 02/24/25 14:30 02/26/25 13:14 Acyclovir 800 Mg Tablet PO 03/03/25 14:29 800 mg TID NUBIA Administration Artificial Tears 0 drop 02/25/25 18:09 02/26/25 05:32 Artificial Tears 225 Drop/15 Ml Btl BOTH EYES 03/27/25 18:08 2 drop PRN PRN Administration TO KEEP EYES MOIST Atorvastatin Calcium 40 mg 02/24/25 21:00 02/26/25 20:02 Atorvastatin Calcium 20 Mg Tablet PO 03/26/25 20:59 40 mg HS NUBIA Administration Gabapentin 100 mg 02/25/25 22:00 02/27/25 06:25 Gabapentin 100 Mg Capsule PO 03/27/25 21:59 100 mg TID NUBIA Administration Heparin Sodium (Porcine) 5,000 unit 02/24/25 13:45 02/27/25 04:01 Heparin Sod Inj 5000 Unit/Ml Vial SC 03/10/25 13:44 Not Given Q12H NUBIA Hydralazine HCl 10 mg 02/24/25 13:40 Hydralazine Inj 20 Mg/Ml Vial IV 03/26/25 13:39 Q6H PRN hypertension Levetiracetam 1,000 mg 02/24/25 21:00 02/26/25 08:22 Levetiracetam Inj 100 Mg/Ml Vial 5ml IVP 03/26/25 20:59 1,000 mg Q12HR NUBIA Administration Lisinopril 20 mg 02/25/25 09:00 02/27/25 08:49 Lisinopril 20 Mg Tablet PO 03/27/25 08:59 20 mg QDAY NUBIA Administration Lorazepam 2 mg 02/24/25 13:36 02/26/25 15:31 Lorazepam 2 Mg/Ml Vial IVP 2 mg Q15MIN PRN Administration Seizure Activity Ondansetron HCl 4 mg 02/24/25 10:26 Ondansetron Inj 2 Mg/Ml Inj 2 Ml IV 03/26/25 10:25 Q4HR PRN NAUSEA OR VOMITING Protocol Prednisone 50 mg 02/27/25 09:00 02/27/25 08:49 Prednisone 20 Mg Tablet PO 03/29/25 08:59 50 mg QDAY NUBIA Administration
[2025-02-27 12:00] VITALS: BP 146/93; PULSE 71; RESP 17; TEMP 36.6; O2SAT 98
--- NOTE | 2025-02-27 13:07 | ESDS_ITS ---
<Statement entered by Jose Elias Rogers MD - 03/02/25 13:00> I reviewed above note and agree with findings and plans. I have also personally examined the patient with medicine team and went over assessment and plan with medical team including intern retail and resident physician. Planned Discharge Date 02/27/25 DS: Providers Provider Date of admission: 02/24/25 13:31 Primary care physician: Toña Sigala([facility])MD Admitting Provider: Jose Elias Rogers MD Attending Provider on Admission: Jose Elias Rogers MD Consults: 02/24/25 10:26 Consult to Neurology / Tele-Neurology Routine Comment: Consulting Provider: [facility] 02/24/25 13:39 Consult to Neurology / Tele-Neurology Routine Comment: Consulting Provider: Chris Sandy Attending Provider on DC: Evie Blanco MD Discharging Provider: Evie Blanco MD DS: Diagnosis Problem List Completed Was Problem List Reviewed/Reconciled?: Yes Hospital Course Hospital Course Hospital course: Summary: Patient is a 46-year-old male with a previous medical history of hypertension and Pugh's Palsy from [facility] who was admitted for new onset of seizure like activity. ER Course: In the ER, patient was hypertensive with blood pressure 192/131, the rest of the vitals were within normal limits. Labs were significant for polycythemia with hemoglobin of 16.9, CMP was unremarkable, lactic acid was elevated 3.0, CPK was normal. CT head did not reveal any mass, hemorrhage, or midline shift. Cervical spine CT was negative for any fracture, CTA was negative for any large vessel occlusion. Teleneuro was consulted, patient was given 2 g of Keppra, Ativan, pain was addressed with [place]. Neurology recommended to admit the patient for inpatient EEG and MRI with contrast to address ongoing new onset seizure. Hospital Course: Patient is a 44-year-old male with a past medical history of Pugh's palsy on acyclovir and prednisone and hypertension who was admitted for seizure-like activity on 02/24/2025. CT head negative for any masses hemorrhage or midline shift. CTA negative for any large vessel occlusion. Cervical spine CT negative for any acute fractures. EEG G unremarkable. MRI on 02/26/2025 showed significant bilateral mastoiditis with no abnormal enhancing cerebellar or cerebral lesions. Chronic para sinusitis noted on MRI. EEG normal no focal diffuse or generalized abnormalities were noted. Although patient was admitted for seizure-like activity, less likely as MRI, EEG, and electrolytes within normal range. Troponin negative. EKG sinus rhythm. During hospital stay vitals remained stable. Patient continued to be treated for Pugh's palsy with acyclovir and prednisone. Lisinopril 20 mg daily for hypertension. Keppra DC'd. Patient was started on gabapentin 100 mg 3 times daily given chief complaint of facial pain. Patient was DC'd on antibiotics given incidental finding of mastoiditis which may be contributing to the left facial pain. Patient is stable and may return to [facility]. Consider 24 EEG. Follow up on Prolactin levels. Instructions: -Acyclovir 800 mg tablet for 3 more days to complete course for Pugh's Palsy -Please take Amoxicillin-Clavulanate twice a day for Mastoiditis, 5 day course. -Please continue your prednisone taper and start at 50 mg for 1 day then continue as per instructions. -Please continue all your medication as prescribed -Please follow up with your primary care provider within one week of discharge -If your symptoms worsen,please seek immediate medical attention and return to your nearest emergency room -If you do not have a primary care provider, you may follow up at the [facility]. [address], [place] [address], Stable to discharge #Seizure likey activity #Pugh's Palsy #Hypertension #Incidental finding Mastoiditis and chronic parasinutitis - The patient's plan was discussed with attending Dr. Rogers and senior residents Dr. Maribel Blanco MD PGY1 Internal Medicine Senior resident attestation: Patient is a 44-year-old male, incarcerated at correctional facility, recent admission for Pugh's palsy on acyclovir and prednisone, brought to the ER due to witnessed seizure at the facility, witnessed by cellmate. Was admitted for new onset seizures, neurology was consulted and followed the patient, patient was started on Keppra, patient had MRI brain and EEG, which were negative for intracranial pathology or epileptiform changes and EEG. Per neurology recommendations discontinued Keppra, concern for possible psychogenic seizures, will continue with acyclovir for 2 more days and start prednisone taper. 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 The patient is stable, able to tolerate p.o. medications, alert and oriented, moving all 4 extremities, agrees with treatment plan on discharge. Patient evaluated and examined at the bedside, plan of care discussed with rest of the team including my attending physician, except as noted. King PGY2 Time Spent with Patient Time attestation: Total time spent providing and/or coordinating discharge services: at least 30 minutes of care and coordination Time spent: Greater than 30 minutes Exam Vital Signs Temp Pulse Resp BP Pulse Ox O2 Del Method 97.8 F 71 17 146/93 H 98 Room Air 02/27/25 12:02/27/25 12:02/27/25 12:02/27/25 12:02/27/25 12:02/27/25 08:00 Narrative Exam General Appearance: Alert & Oriented X3, well-nourished male who is lying in bed in no acute distress HEENT: Skull symmetrical and atraumatic. Conjunctivae pin and moist. Pupils equal, round, reactive to light and accommodation (PERRL). External ear without lesion or discharge. Straight, nares patient, mucosa pink, no discharge. No thyroid nodule appreciated. No cervical lymphadenopathy. Cardio: Normal Rate and Rhythm with S1 and S2 heart sounds. No murmurs or extra heart sounds auscultated. No bruits on carotid auscultation. No peripheral edema or cyanosis. Lungs: Symmetric with good expansion. Chest and back non-tender. Breath sounds vesicular without crackles, wheezing or rhonchi Abdomen: Non-tender, Non-distended, Normal Reactive Bowel Sounds Neuro: Alert, cooperative, oriented to person, place, and time. Speech clear. CN grossly intact. Upper motor strength 5/5 and Lower motor strength 5/5. Sensation intact. Discharge Plan Plan Patient Disposition: Long Term/Court/Law Patient condition on transfer: Stable Care Plan Goals: Instructions: -Acyclovir 800 mg tablet for 3 more days to complete course for Pugh's Palsy -Please take Amoxicillin-Clavulanate twice a day for Mastoiditis, 5 day course. -Please continue your prednisone taper and start at 50 mg for 1 day then continue as per instructions. -Please continue all your medication as prescribed -Please follow up with your primary care provider within one week of discharge -If your symptoms worsen,please seek immediate medical attention and return to your nearest emergency room -If you do not have a primary care provider, you may follow up at the [facility] [address], [place] [address], Stable to discharge Prescriptions/Referrals Prescriptions/Med Rec: New acyclovir 800 mg tablet 800 mg PO TID 3 Days Qty: 9 0RF Rx Instructions: Please take for 3 more days amoxicillin-pot clavulanate 875-125 mg tablet 1 tab PO BID 5 Days Qty: 10 0RF gabapentin 100 mg Capsule 100 mg PO TID 10 Days Qty: 30 0RF Continued atorvastatin 40 mg tablet 40 mg PO HS 30 Days Qty: 30 6RF lisinopril 20 mg Tablet 20 mg PO QDAY 30 Days Qty: 30 6RF acetaminophen [Tylenol] 325 mg Tablet 650 mg PO Q6H PRN (Reason: Fever >100.3 or pain 1-3) Qty: 30 0RF prednisone 10 mg tablet See Taper PO QDAY Qty: 33 0RF Taper: Prednisone Taper 60 mg DAILY for 3 Days and 0 Hour 50 mg DAILY for 1 Day and 0 Hour 40 mg DAILY for 1 Day and 0 Hour 30 mg DAILY for 1 Day and 0 Hour 20 mg DAILY for 1 Day and 0 Hour 10 mg DAILY for 1 Day and 0 Hour Rx Instructions: You will take 60mg for 3 days, 50mg for 1 day, 40mg for 1 day, 30 mg for 1 day, 20mg for 1 day and 10mg for 1 day. Discontinued artificial tear([id number]) 0.1-0.3-0.2 % Drops 1 drp Left eye PRN PRN (Reason: To Keep Eyes Moist) Qty: 1 0RF pantoprazole 40 mg tablet,delayed release (DR/EC) 40 mg PO QDAY Qty: 30 0RF acyclovir 800 mg tablet 800 mg PO TID 9 Days Qty: 27 0RF Referrals: Zakiya([facility])Toña MD [Primary Care Provider] - Chris Sandy MD [Physician] - Patient/Caregiver Discharge Instructions Education Materials: Pugh's Palsy Print Language: Palauan Discharge Order Discharge Orders: Discharge (Routine); Ordered 02/27/25 Ordered By: Evie Blanco Quality Discharge Quality Measures VTE prophylaxis
[2025-03-02 06:59] LABS: Prolactin* 6.9 ng/mL (2.0-18.0)
== END 2025-02-27 11:45 | DRG 53 ==
LOC: SERX 13:23 → SERHOLD 13:56 → S2NX 18:07
PROVIDERS: Student in an Organized Health Care Education/Training Program; Admitting Provider Internal Medicine; Emergency Provider Emergency Medicine; PCP Internal Medicine; Visit Provider Internal Medicine
DX: R56.9 Unspecified convulsions (principal); G81.94 Hemiplegia, unspecified affecting left nondominant side; R51.9 Headache, unspecified; J32.4 Chronic pansinusitis; H70.93 Unspecified mastoiditis, bilateral; I10 Essential (primary) hypertension; D75.1 Secondary polycythemia; G51.0 Bell's palsy; W07.XXXA Fall from chair, initial encounter
CPT/HCPCS: 36415; 70450; 70496; 70498; 70552; 72125; 80053; 80061; 80307; 81001; 82550; 83605; 83735; 83880; 84100; 84146; 84439; 84443; 84484; 85014; 85018; 85025; 85610; 85730; 86703; 87081; 87086; 92610; 93005; 95816; 96361; 96372; 96374; 99291; A4649; A9579; J0360; J1171; J1200; J1644; J1885; J1953; J2060; J2765; J7030; J7120; J7512; Q9967; A9270